=== PATIENT | female | born 1940 | race Caucasian/White ===

== ENCOUNTER 2021-11-19 16:46 | Inpatient (IN) | payer MEDICARE, SELFPAY ==
--- NOTE | ~2021-11-19 | XR_ITS ---
EXAM: XR pelvis 1-2V, XR femur LT min 2V DATE: 11/19/2021 17:36 HISTORY: FALL, SHORTENED, ROTATION . COMPARISON: None available. FINDINGS: Decreased mineralization. Comminuted somewhat overlapping left intertrochanteric fracture. Cortical step-off at the proximal aspect of the right superior pubic ramus and pubic bone junction. Suggestion of a fracture line in the right sacral ala. No lytic or blastic lesion. Bilateral hip arth ritis and degenerative lumbar change. No erosion or periosteal change. Soft tissues within normal engle its. IMPRESSION: Comminuted left intertrochanteric fracture. Possible right pelvic and sacral fractures, r ecommend CT of the pelvis for further evaluation. Reviewed, dictated and finalized at location K. IMPRESSION: Comminuted left intertrochanteric fracture. Possible right pelvic a nd sacral fractures, recommend CT of the pelvis for further evaluation.
--- NOTE | ~2021-11-19 | CT_ITS ---
CT OF PELVIS EXAMINATION: CT pelvis wo con DATE: 11/19/2021 18:32 INDICATION: Possible fracture on radiograph. TECHNIQUE: Computed tomography (CT) of the pelvis was performed without intravenous contrast. Automat ed exposure control and iterative reconstruction technique were employed. The dose-length product was 164.73 mGy-cm. COMPARISON: Pelvic x-ray, same date FINDINGS: Limitations: None Bones: Severe osteopenia. Comminuted left intertrochanteric fracture. No acute right hip or pelvic fr acture. Old left pubic and inferior pubic ramus fractures, healed in slight deformity. Soft Tissues:Mishra catheter, with the distended balloon in the urinary bladder. Bladder wall thickeni ng. Diverticulosis without diverticulitis. Atherosclerotic vascular calcifications. Fluid: Fluid within the left hip joint space. Fat fluid levels within fluid collections about the gre ater trochanter. IMPRESSION: Comminuted left intertrochanteric fracture. No other fracture in the pelvis or right hip. Findings in the prior radiograph were artifactual. Reviewed, dictated and finalized at location K.
--- NOTE | ~2021-11-19 | CT_ITS ---
EXAMINATION: CTA chest PE protocol DATE: 11/20/2021 10:30 INDICATION: Bilateral deep venous thrombosis of the lower extremities TECHNIQUE: Computed tomography angiography (CTA) of the chest was performed with 100 mL Omnipaque-350 intravenous contrast timed to evaluate the pulmonary arteries. Coronal maximum intensity projection 3D-reconstructions were created by the technologist. Automated exposure control and iterative reconst ruction technique were employed. Exam dose: 209.36 mGy-cm total exam DLP. COMPARISON: 11/19/2021 AP chest 11/20/2021 venous duplex examination of the lower extremities FINDINGS: There is diagnostic contrast enhancement of the pulmonary arteries. There is no volume nono cclusive pulmonary embolism involving segmental branches to the middle and right lower lobes. Cardiomegaly. No pericardial or pleural effusion. No hilar or mediastinal mass lesion or lymphadenopa thy. There is aortic ectasia and calcification. Mild emphysematous changes of the lungs. Minimal atelectasis in the lower lobes. Diffuse osteopenia. No suspicious osteolytic or osteoblastic lesions. IMPRESSION: Mild nonocclusive, pulmonary embolism at middle and right lower lobes Reviewed, dictated and finalized at Location A. Reviewed, dictated and finalized at location B. IMPRESSION: Mild nonocclusive, pulmonary embolism at middle and right lower lo bes
--- NOTE | ~2021-11-19 | US_ITS ---
EXAMINATION:US venous doppler LE BI INDICATION:Follow-up DVT. TECHNIQUE: Multiple grayscale, color flow and Doppler images of the right and left lower extremity de ep venous systems were obtained and reviewed. COMPARISON:11/20/2021 FINDINGS: The common femoral, superficial femoral veins demonstrate normal respiratory variation, aug mentation and compressibility. There are small persistent DVTs in the popliteal veins bilaterally, un changed. Color flow is also seen within the posterior tibial, peroneal, greater saphenous and profund a veins. IMPRESSION: 1: Persistent bilateral deep venous thrombosis in the popliteal veins. Reviewed, dictated and finalized at location A.
--- NOTE | ~2021-11-19 | CT_ITS ---
EXAMINATION: CT femur RT wo con, CT femur LT wo con DATE: 11/20/2021 07:52 INDICATION: Lytic lesions of the femoral diaphyses on prior radiographs. TECHNIQUE: 1. High resolution computed tomography (CT) of the right femur was performed without intravenous cont rast. Additional sagittal and coronal reconstructions were performed. Automated exposure control and iterative reconstruction technique were employed. The dose-length product was 395.21 mGy-cm. 2. High resolution computed tomography (CT) of the left femur was performed without intravenous contr ast. Additional sagittal and coronal reconstructions were performed. Automated exposure control and i terative reconstruction technique were employed. The dose-length product was 395.21 mGy-cm. COMPARISON: Radiographs dated 11/19/2021 FINDINGS: Again seen is a comminuted intratrochanteric fracture of the proximal left femur with varus angulatio n and minimal medial distraction of the lesser trochanteric fragment. Associated labral hematoma with layering fat blood levels are seen lateral to the greater trochanter measuring 6.5 x 6.5 x 3.1 cm an d cephalad to the greater trochanter measuring 2.8 x 5.0 x 3.1 cm. No other acute fractures identifie d in either the left or right femur or visualized inferior pelvis. Old healed fracture deformities at the left superior and inferior pubic rami and intervening pubic body. Severe diffuse osteopenia most likely osteoporosis which appears to account for the appearance of lytic lesion with endosteal scall oping in the bilateral femoral diaphyses. Within the region of concern there is an absence of interna l trabecula and the marrow signal demonstrates diffuse decreased attenuation corresponding to fatty m arrow with Hounsfield units of -60 to -80. Small amount of intramedullary hemorrhage adjacent to the fracture and the proximal left femur. There is also some scattered spotty severe subcortical osteopen ia also with subtle marrow fat attenuation in the more distal femurs and proximal tibia on both the l eft and right. No lesions with appearance more suspicious for either metastatic disease or multiple m yeloma. Mild polyarticular osteoarthritis at the bilateral knees and hips. Small left hip hemarthrosi s. No joint effusion at the right hip or either knee. Likely age-related symmetric diffuse muscular a trophy in the visualized pelvis and bilateral thighs. Mishra catheter and some gas within the bladder. Marked diverticulosis along the visualized sigmoid colon without adjacent inflammatory change to sug gest diverticular colitis. No evident pelvic or inguinal lymphadenopathy. IMPRESSION: 1. Varus angulation of a comminuted intratrochanteric fracture of the proximal left femur. 2. Relatively symmetric marked diffuse osteopenia likely frankly osteoporotic which accounts for the appearance of lytic bone lesions in the diaphysis where there is diffuse fatty marrow attenuation wit h no evident associated higher attenuation fluid or soft tissue density to suggest metastatic disease or multiple myeloma. 3. Old healed fracture deformity at the left pubic body and superior and inferior pubic rami. Reviewed, dictated and finalized at location A. IMPRESSION: 1. Varus angulation of a comminuted intratrochanteric fracture of the proximal left femur. 2. Relatively symmetric marked diffuse osteopenia likely frankly osteoporotic w hich accounts for the appearance of lytic bone lesions in the diaphysis where t here is diffuse fatty marrow attenuation with no evident associated higher atte nuation fluid or soft tissue density to suggest metastatic disease or multiple myeloma. 3. Old healed fracture deformity at the left pubic body and superior and inferi or pubic rami. IMPRESSION: 1. Varus angulatio
--- NOTE | ~2021-11-19 | XR_ITS ---
EXAMINATION: XR chest 1V Exam Date/Time: 11/19/2021 17:25 CDT HISTORY: fall Comparison: None available. RESULT: Lines, tubes, and devices: None. Lungs and pleura: Minimal biapical pleural scarring. Right upper lung granuloma. Mild senescent shah ge. Cardiomediastinal silhouette: Unremarkable cardiomediastinal silhouette. Other: No acute osseous or upper abdominal finding. IMPRESSION: No acute cardiopulmonary process. Reviewed, dictated and finalized at location K.
--- NOTE | ~2021-11-19 | XR_ITS ---
EXAMINATION: XR surgery orthopedic DATE: 11/20/2021 18:46 INDICATION: Intertrochanteric fracture of proximal left femur. TECHNIQUE: 5 intraoperative fluoroscopic views of left hip were obtained. I was not present. Fluorosc opy exposure time was 251 seconds. COMPARISON: Left femur radiographs 11/19/2021 FINDINGS: There is a comminuted intertrochanteric fracture of proximal left femur status post open re duction internal fixation with antegrade intramedullary kevin and 2 femoral head/neck screws. The main distal fracture fragment demonstrates near-anatomic alignment. There are old healed fractures of left parasymphyseal pubis and inferior pubic ramus. There is mild left hip osteoarthritis. IMPRESSION: 1. Comminuted intertrochanteric fracture of proximal left femur status post open reduction internal f ixation. 2. Mild left hip osteoarthritis. Reviewed, dictated and finalized at location A. IMPRESSION: 1. Comminuted intertrochanteric fracture of proximal left femur status post ope n reduction internal fixation. 2. Mild left hip osteoarthritis.
--- NOTE | ~2021-11-19 | US_ITS ---
EXAMINATION: US venous doppler [facility] DATE: 11/20/2021 07:58 INDICATION: Doppler evaluation prior to internal fixation for a left femoral fracture. TECHNIQUE: Grayscale ultrasound images without and with compression and Doppler ultrasound images of the bilateral lower extremity veins were obtained. COMPARISON: None. FINDINGS: Nonocclusive noncompressible thrombus in the right popliteal vein. The visualized portions of right c ommon femoral vein, profunda (deep) femoral vein, femoral vein, posterior tibial veins, peroneal vein s, gastrocnemius vein and greater saphenous vein outflow are patent. Additional nonocclusive noncompressible thrombus in the left popliteal vein. The visualized portions of left common femoral vein, profunda femoral vein, femoral vein, posterior tibial veins, peroneal ve ins, gastrocnemius vein and greater saphenous vein outflow are patent. IMPRESSION: 1. Relatively symmetric nonocclusive deep venous necrosis in the bilateral popliteal veins. Findings were discussed with Petty De La Vega, the nurse caring for the patient, at 8:25 AM. Reviewed, dictated and finalized at location A. IMPRESSION: 1. Relatively symmetric nonocclusive deep venous necrosis in the bilateral pop liteal veins. Findings were discussed with Petty De La Vega, the nurse caring fo r the patient, at 8:25 AM.
[2021-11-19 16:46] VITALS: BP 146/80; PULSE 88; RESP 18; TEMP 36.6; O2SAT 98
--- NOTE | 2021-11-19 16:57 | ECG_ITS ---
Measurements Intervals Webb Rate: 83 P: 56 GA: 154 QRS: -20 QRSD: 100 T: 60 QT: 392 QTc: 461 Interpretive Statements SINUS RHYTHM BORDERLINE ST-T WAVE ABNORMALITY- DIFFUSE LEADS BASELINE ARTIFACT- I, II, III, AVR, AVL, AVF, V1-V6 BORDERLINE ECG Electronically Signed On 11-19-2021 22:43:34 CDT by Guille Vaughan D.O.
--- NOTE | 2021-11-19 16:59 | ED.LOWEXIN ---
HPI - Extremity Injury (Lower) General Chief Complaint: Extremity Injury, Lower <Elisa Bush PA-C - Last Filed: 11/20/21 01:16> Stated Complaint: Hip Injury <Elisa Bush PA-C - Last Filed: 11/20/21 01:16> Time Seen by Provider: 11/19/21 16:53 <Elisa Bush PA-C - Last Filed: 11/20/21 01:16> History of Present Illness HPI Narrative: Patient is a 81-year-old female with a history of PE, DVT, HTN, not currently on any medications, here for evaluation of left leg pain after a fall earlier today. Patient states that she was using her walker when she lost balance and she landed on her left side on the carpeted floor. No head injury or LOC. States that she was in her usual state of health prior to the fall, denied any chest pain, shortness of breath, lightheadedness or weakness. She stayed on the ground for about 10 minutes, her called an ambulance and she came to the ED. She was given fentanyl and Zofran in route with mild relief of her pain. <SACHIN Chaudhry Last Filed: 11/20/21 01:16> Related Data Home Medications: Home Medications Medication Instructions Recorded Confirmed acetaminophen 325 mg capsule 325 mg Q4-6H PRN Pain 11/19/21 11/19/21 (Tylenol) <SACHIN Chaudhry Last Filed: 11/20/21 01:16> Allergies/Adverse Reactions: Allergies Allergy/AdvReac Type Severity Reaction Status Date / Time Penicillins Allergy Mild Unknown Verified 11/19/21 18:58 <Elisa Bush PA-C - Last Filed: 11/20/21 01:16> Review of Systems Review of Systems: Gen.: Denies fevers or chills Eyes: Denies eye pain or visual change ENT: Denies congestion Respiratory: Denies shortness of breath or cough CV: Denies chest pain or palpitations GI: Denies abdominal pain nausea, emesis or diarrhea denies burning, urgency, frequency or hematuria Musculoskeletal: Reports left leg pain. Neuro: Denies numbness, tingling, weakness or focal weakness Skin: Denies rash Except as documented, all other systems reviewed and negative <Elisa Bush PA-C - Last Filed: 11/20/21 01:16> [facility] Past Medical History Medical History: Medical History DVT (deep venous thrombosis) Hypertension Pulmonary embolism <Elisa Bush PA-C - Last Filed: 11/20/21 01:16> Surgical History Surgical History: Surgical History H/O: hysterectomy <SACHIN Chaudhry Last Filed: 11/20/21 01:16> Family History Family History: Family History Other Unknown family medical history <SACHIN Chaudhry Last Filed: 11/20/21 01:16> Social History Social History: Social History Social History: patient lives at home with her theodora she had 1 daughter. She wishes to be a DNR at this time. Theodora will be her surrogate. Smoking status: Former smoker Additional smoking assessment comments: Patient has no idea when she started or stopped smoking Alcohol intake: current Drinks per week: 6 Alcohol use details: patient stated she has wine a couple of times a week Substance use: never Substance use type: does not use Living arrangements: with family Occupation/Education: retired Gender identity (if verbalized by the patient): Female Sexual Orientation (if Verbalized by the Patient): Straight or Heterosexual Spiritual care concerns: No Agree to blood products: Yes <SACHIN Chaudhry Last Filed: 11/20/21 01:16> Exam Narrative: APPEARANCE: Uncomfortable appearing. Head: Normocephalic and atraumatic. EYES: PERRLA/EOMI, conjunctivae clear NOSE: No nasal drainage EARS: External ear normal in appearance THROAT: Oropharynx is clear. Mucous membranes ar
[2021-11-19 17:13] LABS: Basophils Percent Auto 0.7 % (0.2-1.2); Eosinophils Absolute Auto 0.2 K/mm3 (0-0.3); Eosinophils Percent Auto 3.9 % (0-4.4); Hematocrit 32.9 % (37.0-47.0); Hemoglobin 10.9 g/dL (12.0-15.0); Immature Granulocyte Absolute 0.02 K/mm3 (0.00-0.031); Immature Granulocyte Percent A 0.4 % (0-0.5); Lymphocytes Absolute Auto 1.06 K/mm3 (0.9-3.2); Lymphocytes Percent Auto 18.8 % (18.3-44.2); Mean Corpuscular HGB Conc 33.1 g/dl (32-36); Mean Corpuscular Hemoglobin 34.8 pg (26-34); Mean Corpuscular Volume 105.1 fl (80-100); Mean Platelet Volume 9.3 fl (7.4-10.4); Monocytes Absolute Auto 0.8 K/mm3 (0.1-0.6); Monocytes Percent Auto 13.8 % (2.6-8.5); Neutrophils Absolute Auto 3.5 K/mm3 (1.3-6.7); Neutrophils Percent Auto 62.4 % (45.5-73.1); Platelet Count Result 225 k/mm3 (150-375); Red Blood Count 3.13 M/mm3 (4.2-5.4); Red Cell Distribution Width 14.4 % (11.5-14.5); White Blood Count 5.7 K/mm3 (4.5-10.0)
[2021-11-19 17:25] LABS: Alanine Aminotransferase 41 U/L (6-35); Albumin Level 3.5 g/dL (3.5-5.1); Alkaline Phosphatase 217 U/L (38-126); Anion Gap 13 mmol/L (8-16); Aspartate Amino Transferase 92 U/L (14-36); Bilirubin,Total 0.4 mg/dL (0.2-1.3); Blood Urea Nitrogen 16 mg/dL (7-17); Calcium 9.1 mg/dL (8.4-10.2); Carbon Dioxide 23 mmol/L (22-30); Chloride 90 mmol/L (98-107); Estimated CRCL calculation 29 ml/min; Estimated Glomerular Filt Rate 43; Glucose 97 mg/dL (65-110); Potassium 3.5 mmol/L (3.4-5.0); Sodium 126 mmol/L (137-145)
[2021-11-19 17:44] LABS: Magnesium 1.3 mg/dL (1.6-2.3); Phosphorus 2.9 mg/dL (2.5-4.5)
[2021-11-19 17:45] VITALS: PULSE 83; RESP 11; O2SAT 100
[2021-11-19 17:53] LABS: Troponin I < 0.012 ng/mL (0.000-0.034)
[2021-11-19] MEDS: fentaNYL CITRATE INJ (*CRX) 100 MCG/2 ML VIAL 25 MCG IV PUSH (18:18)
[2021-11-19 18:57] VITALS: BP 121/77; PULSE 92; RESP 8; O2SAT 98
[2021-11-19 19:12] LABS: SARS-CoV-2 RNA PCR Negative
--- NOTE | 2021-11-19 19:14 | PC.NURSE ---
Assuming care of pt.
[2021-11-19 19:15] VITALS: BP 119/77; PULSE 92; RESP 14; O2SAT 98
[2021-11-19] MEDS: MAGNESIUM SULF 2 GM/WATER 50ML 2 GM/50 ML BAG IVPB (19:46)
[2021-11-19] MEDS: ACETAMINOPHEN 325 MG TABLET 650 MG PO (20:08)
--- NOTE | 2021-11-19 21:27 | ADMGEN ---
This patient, Stephanie Beltrán, was admitted to Medical Room 254-01. Patient/family oriented to hospital policies and general routines including ID bracelet, bed and alarms, visiting hours, pain management, procedures, bathroom and other care routines, personal items, smoking policy, room service/diet, and visiting hours. Information on how to activate the Rapid Response Team has been discussed. Patient/Family are encouraged to report perceived risks to care and to ask questions if they do not understand what they are told or what they should do.
--- NOTE | 2021-11-19 21:39 | PC.NURSE ---
WHEN GOING OVER PT MEDS SHE STATED SHE DOES NOT TAKE ANY HOME MEDICATIONS. ONLY A TYLENOL HERE AND THERE FOR BACK PAIN.
[2021-11-19 21:59] VITALS: BP 131/74; PULSE 103; RESP 20; TEMP 36.2; O2SAT 98
[2021-11-19 22:00] VITALS: BMI 20.8
--- NOTE | 2021-11-19 22:00 | PM.IMHP ---
H&P: HPI History of Present Illness Date/Time: 11/19/21 21:27 Chief Complaint: fall Narrative: Patient is an 81-year-old female with a past medical history of pulmonary embolism, DVT, hypertension who presented the ED the after a fall. Patient was up and walking with her walker she lost her balance she stated that she landed on her left side on the carpet. Her was there with her and Called for an ambulance. Patient states that she has had no issues over the last couple days including chest pain, shortness of breath, nausea, vomiting, diarrhea, constipation, visual changes, sweats, fevers, chills, syncope, dizziness, falls. Patient is a very poor historian. Looking at the external medication history patient has been prescribed Eliquis however when you ask her about it she has no clue which are saying to her. She does know where she is the time and date and situation. X-ray of the femur did show a fracture. CT of the abdomen and pelvis did not show any pelvic fractures. Orthopedics has been consulted. Echo, venous Dopplers are ordered EKG is already performed and completed. Did not consult Cardiology for risk assessment however labs are stable sodium is little low. Patient is being admitted to the hospitalist service as inpatient for hip repair Review of Systems Review of Systems: All systems reviewed & are unremarkable except as noted in HPI and below [facility] Past Medical History Medical History DVT (deep venous thrombosis) Hypertension Pulmonary embolism Family History Family History (Updated 11/19/21 @ 21:31 by Yaritza Harris RN) Other Unknown family medical history Social History Social History (Updated 11/19/21 @ 23:07 by BOBBI Kearns) Social History: patient lives at home with her debbie she had 1 daughter. She wishes to be a DNR at this time. Pat will be her surrogate. Smoking status: Former smoker Additional smoking assessment comments: Patient has no idea when she started or stopped smoking Alcohol intake: current Drinks per week: 6 Alcohol use details: patient stated she has wine a couple of times a week Substance use: never Substance use type: does not use Living arrangements: with family Occupation/Education: retired Gender identity (if verbalized by the patient): Female Sexual Orientation (if Verbalized by the Patient): Straight or Heterosexual Spiritual care concerns: No Agree to blood products: Yes Meds Home Medications and Allergies Home Medications Medication Instructions Recorded Confirmed Type acetaminophen 325 mg capsule 325 mg Q4-6H PRN Pain 11/19/21 11/19/21 History (Tylenol) Allergies Allergy/AdvReac Type Severity Reaction Status Date / Time Penicillins Allergy Mild Unknown Verified 11/19/21 18:58 Vital Signs Vital Signs - 24 hr 11/19/21 16:46 11/19/21 17:45 11/19/21 18:57 Temperature 98 F Pulse Rate 88 83 92 Respiratory Rate 18 11 L 8 L Blood Pressure 146/80 H 121/77 Pulse Oximetry 98 100 98 Oxygen Delivery Room Air 11/19/21 19:15 Temperature Pulse Rate 92 Respiratory Rate 14 Blood Pressure 119/77 Pulse Oximetry 98 Oxygen Delivery Exam Const: General: cooperative, healthy appearing, no acute distress, well developed, alert, awake, tired appearing and uncomfortable Nutritional Appearance: well nourished Orientation/consciousness: oriented to person, oriented to place, oriented to time and patient oriented x3 Limitations: physical limitations (left femur fracture) HENMT: Head: normal to inspection Ears: hearing grossly normal bilaterally General nose exam: Normal external nose present Mouth: Yes lip normal, Yes tongue normal and Yes dry mucous membranes Teeth and gingiva: abnormal tooth and associated gingiva and poor dentition Eyes: General: appearance normal, both eyes and all related structures Neck: Neck: no
[2021-11-19] MEDS: MORPHINE SULFATE (*CRX) 2 MG/ML INJ 1 MG IV PUSH (22:30)
[2021-11-19] MEDS: LACTATED RINGERS 1,000 ML 50 ML IV CONT (22:41)
[2021-11-19] MEDS: SODIUM CHLORIDE 0.9% IV 1,000 ML 100 ML IV CONT (23:25)
[2021-11-19] MEDS: HYDROcodone/acetaminophen (*CRX) 5-325 MG TABLET 1 TAB PO (23:30)
[2021-11-20] VITALS (18 sets, daily range): BP systolic 104–148; BP diastolic 70–92; PULSE 94–119; RESP 12–21; TEMP 36.1–37; O2SAT 97–100
--- NOTE | 2021-11-20 | ECHO_ITS ---
Patient Info Name: Stephanie Beltrán Age: 81 years : 1940 Gender: Female Ht: 64 in Wt: 121 lbs BSA: 1.57 m2 HR: 118 bpm BP: 148 / 92 mmHg Exam Date: 11/20/2021 9:02 AM Exam Location: [facility] Patient Status: Inpatient Admit Date: 11/19/2021 Staff Ordering Physician: Juan Diego Caballero Line Maintainer Section: Maciej Amezquita RDCS, RT Attending Provider: Denae Caceres PA-C Referring Physician: Federico EDMONDS; Exam Type: CA echo doppler color flow Study Info Indications Z01.818 - Encounter for other preprocedural examination Complete two-dimensional, color flow and Doppler transthoracic echocardiogram is performed. Summary 1. Complete two-dimensional, color flow and Doppler transthoracic echocardiogram is performed. 2. Left ventricular systolic function is probably normal, estimated at 50-55%. Cannot assess wall motion abnormalities due to poor endocardial definition. 3. There is mildly increased left ventricular wall thickness. 4. Left ventricular chamber dimension is normal. 5. There is moderate aortic valve sclerosis. 6. There is mild mitral valve regurgitation. 7. There is mild tricuspid valve regurgitation. 8. No pulmonary hypertension, estimated pulmonary arterial systolic pressure is 35 mmHg. 9. There is mild pulmonic regurgitation. Left Ventricle Left ventricular chamber dimension is normal. Left ventricular systolic function is probably normal, estimated at 50-55%. Cannot assess wall motion abnormalities due to poor endocardial definition. There is mildly increased left ventricular wall thickness. Left ventricular septal wall motion is normal. The left ventricular diastolic function is indeterminate. Right Ventricle Right ventricular chamber dimension is normal. Right ventricular systolic function is normal. Left Atria Left atrial chamber dimension is normal. Right Atria Right atrial chamber dimension is normal. Atrial Septum Interatrial septum not well visualized by color flow imaging. Aortic Valve The aortic valve is trileaflet. There is moderate aortic valve sclerosis. There is no aortic valve stenosis. There is no aortic valve regurgitation. Pulmonic Valve The pulmonic valve is normal. There is no pulmonic valve stenosis. There is mild pulmonic regurgitation. Mitral Valve The mitral valve has normal leaflets. There is no mitral valve stenosis. There is mild mitral valve regurgitation. Tricuspid Valve The tricuspid valve leaflets are normal. There is no significant tricuspid valve stenosis. There is mild tricuspid valve regurgitation. No pulmonary hypertension, estimated pulmonary arterial systolic pressure is 35 mmHg. Pericardium/Pleural The pericardium appears normal. There is no pericardial effusion. Inferior Vena Cava Normal inferior vena cava with >50% collapse upon inspiration consistent with Empty right atrial pressure, 5 mmHg. Aorta The aortic root size at the sinus of Valsalva is normal. The prox ascending aorta size is normal. Left Ventricular Outflow Tract Name Value Normal LVOT 2D LVOT Diameter 1.9 cm LVOT Doppler LVOT Peak
--- NOTE | 2021-11-20 06:45 | PM.CNOR ---
Assessment and Plan Assessment and plan (1) Closed intertrochanteric fracture of femur: Code(s): S72.143A - Displaced intertrochanteric fracture of unspecified femur, initial encounter for closed fracture Status: Acute Plan this patient is an 82-year-old female fell yesterday sustaining a comminuted intertrochanteric left femur fracture with extension well below the lesser trochanter. She has a history DVT and pulmonary embolism. Her x-rays show severe osteoporosis. On review of the x-rays of the left femur there is the suggestion that there is a lytic lesion in the mid shaft of the left femur that is expansile. It is not possible to get a good comparison with the right femur on the AP pelvis because of the rotation I am going to order a CT scan both femurs to make sure that the unusual and ostial expansion in the mid shaft of the left femur is symmetric with the right. If not we have to worry about a lytic bone lesion such as a metastasis. An echocardiogram has been ordered to evaluate her heart and because of her lower extremity edema and history of DVTs and PE in the past and the fact that she she is not on any anticoagulation currently, venous duplex ultrasounds of both lower extremities are ordered. Patient was ambulatory with a walker prior to her fall. She lives at home with her she states. On exam she could not tell me when she had the blood clots or when she stops the Eliquis. She can only say it was a while ago and could not be more specific. I asked her what year was and she could not answer. The nurse tells me that last night she answered questions very well. She seems alert and communicates very normally. She does appear elderly and frail. She denies any other problems except for pain in the left hip which is shortened and externally rotated. I have carefully slid a pillow under her calves and knees so her heals will be off the bed. She has SCDs in place. She does have a palpable posterior tibial artery pulse and is able to wiggle her toes. I have discussed with her that we will need to repair this fracture if she is going to be able to walk and she wants to do that course. We will try and have the workup completed and proceed with surgery by this afternoon. I am going to order repeat labs. She has renal insufficiency and she was admitted with significant anemia which may be much worse today. History of Present Illness HPI Consult date: 11/20/21 Chief complaint: femur fracture PMFSH Past Medical History Medical History DVT (deep venous thrombosis) Hypertension Pulmonary embolism Family History Family History (Updated 11/19/21 @ 21:31 by Yaritza Harris RN) Other Unknown family medical history Social History Social History (Updated 11/19/21 @ 23:07 by BOBBI Kearns) Social History: patient lives at home with her debbie she had 1 daughter. She wishes to be a DNR at this time. Debbie will be her surrogate. Smoking status: Former smoker Additional smoking assessment comments: Patient has no idea when she started or stopped smoking Alcohol intake: current Drinks per week: 6 Alcohol use details: patient stated she has wine a couple of times a week Substance use: never Substance use type: does not use Living arrangements: with family Occupation/Education: retired Gender identity (if verbalized by the patient): Female Sexual Orientation (if Verbalized by the Patient): Straight or Heterosexual Spiritual care concerns: No Agree to blood products: Yes Meds Home Medications and Allergies Home Medications Medication Instructions Recorded Confirmed Type acetaminophen 325 mg capsule 325 mg Q4-6H PRN Pain 11/19/21 11/19/21 History (Tylenol) Allergies Allergy/AdvReac Type Severity Reaction Status Date / Time Penicillins Allergy Mild Unknown Verified 11/19/21 18:58
--- NOTE | 2021-11-20 07:32 | PM.IMPN ---
Progress Note: A&P Assessment and Plan (1) Closed fracture of left femur: Code(s): S72.92XA - Unspecified fracture of left femur, initial encounter for closed fracture <Denae Caceres PA-C - Last Filed: 11/20/21 15:01> Status: Acute <Denae Caceres PA-C - Last Filed: 11/20/21 15:01> Assessment and Plan: femur x-ray shows the comminuted intertrochanteric left femur fracture with extension well below the lesser trochanter. Orthopedics has been consulted in they do have some concern of a lytic lesion in the midshaft of the left femur, and will be ordering CT scan of both femurs to evaluate further. Patient is tachycardic and tachypneic this morning. Plan is for surgery at 3:30 today. [place] on board for pain control along with Tylenol and morphine orthopedics to manage postop care EKG shows sinus rhythm telemetry overnight will use SCDs for now for DVT prophylactics <Denae Caceres PA-C - Last Filed: 11/20/21 15:01> (2) Pulmonary emboli: Code(s): I26.99 - Other pulmonary embolism without acute cor pulmonale <Denae Caceres PA-C - Last Filed: 11/20/21 15:01> Status: Acute <Denae Caceres PA-C - Last Filed: 11/20/21 15:01> Assessment and Plan: CTA 11/20 showed mild nonocclusive, pulmonary embolism middle and right lower lobes. Cardiomegaly, no pericardial or pleural effusion. -reported findings to Dr. Callejas, ortho surgery at 11:26 a.m for additional surgical planning. - Awaiting echo read. - Patient with history of DVTs and pulmonary emboli, was on long-term Eliquis, however patient did discontinue it at some point ( patient is a poor historian -patient will likely initiate Eliquis postoperatively within 8 hours per Ortho. <Denae Caceres PA-C - Last Filed: 11/20/21 15:01> (3) DVT (deep venous thrombosis): Code(s): I82.409 - Acute embolism and thrombosis of unspecified deep veins of unspecified lower extremity <Denae Caceres PA-C - Last Filed: 11/20/21 15:01> Status: Acute <Denae Caceres PA-C - Last Filed: 11/20/21 15:01> Assessment and Plan: Venous duplex showed relatively symmetric nonocclusive deep venous necrosis in the bilateral popliteal veins. -have discussed with Orthopedics, further evaluation pursued as above. -patient will likely initiate Eliquis postoperatively within 8 hours per Ortho. <Denae Caceres PA-C - Last Filed: 11/20/21 15:01> (4) Transaminitis: Code(s): R74.01 - Elevation of levels of liver transaminase levels <Denae Caceres PA-C - Last Filed: 11/20/21 15:01> Status: Acute <Denae Caceres PA-C - Last Filed: 11/20/21 15:01> Assessment and Plan: liver enzymes elevated 92/141 hep panel pending Will check a.m. labs. <Denae Caceres PA-C - Last Filed: 11/20/21 15:01> (5) Hypomagnesemia: Code(s): E83.42 - Hypomagnesemia <Denae Caceres PA-C - Last Filed: 11/20/21 15:01> Status: Acute <Denae Caceres PA-C - Last Filed: 11/20/21 15:01> Assessment and Plan: magnesium 1.3 replaced with 4 g IV magnesium trend labs replace as indicated <Denae Caceres PA-C - Last Filed: 11/20/21 15:01> (6) Hyponatremia: Code(s): E87.1 - Hypo-osmolality and hyponatremia <Denae Caceres SACHIN - Last Filed: 11/20/21 15:01> Status: Acute <Denae Caceres SACHIN Ramirez Last Filed: 11/20/21 15:01> Assessment and Plan: sodium is at 128 today, up from 126. sodium chloride continued at 100 an hour, will recheck at 3PM. trend labs adjust therapy as indicated <Denae Childsosvaldo SACHIN - Last Filed: 11/20/21 15:01> (7) Hypertension: Code(s): I10 - Essential (primary) hypertension <Denae Caceres PA-C - Last Filed: 11/20/21 15:01> Status: Acute <Denae Caceres PA-C - Last Filed: 11/20/21 15:01> Assessment and Plan:
[2021-11-20 08:19] LABS: Hematocrit 29.7 % (37.0-47.0); Hemoglobin 10.2 g/dL (12.0-15.0); Mean Corpuscular HGB Conc 34.3 g/dl (32-36); Mean Corpuscular Hemoglobin 34.9 pg (26-34); Mean Corpuscular Volume 101.7 fl (80-100); Mean Platelet Volume 9.1 fl (7.4-10.4); Platelet Count Result 281 k/mm3 (150-375); Red Blood Count 2.92 M/mm3 (4.2-5.4); Red Cell Distribution Width 14.2 % (11.5-14.5); White Blood Count 8.3 K/mm3 (4.5-10.0)
[2021-11-20 08:32] LABS: Alanine Aminotransferase 38 U/L (6-35); Albumin Level 3.1 g/dL (3.5-5.1); Alkaline Phosphatase 205 U/L (38-126); Anion Gap 8 mmol/L (8-16); Aspartate Amino Transferase 77 U/L (14-36); Bilirubin,Total 0.7 mg/dL (0.2-1.3); Blood Urea Nitrogen 14 mg/dL (7-17); Calcium 8.5 mg/dL (8.4-10.2); Carbon Dioxide 25 mmol/L (22-30); Chloride 95 mmol/L (98-107); Estimated CRCL calculation 34 ml/min; Estimated Glomerular Filt Rate 53; Glucose 147 mg/dL (65-110); Sodium 128 mmol/L (137-145)
[2021-11-20 08:34] LABS: INR 0.9
[2021-11-20 08:57] LABS: Vitamin D 25 Hydroxy 14.4 ng/mL
[2021-11-20] MEDS: oxyCODONE HCL (*CRX) 2.5 MG TAB IR PO ×3 (09:20→20:45)
[2021-11-20] MEDS: DOCUSATE SODIUM 100 MG CAPSULE PO (09:20)
[2021-11-20 12:21] LABS: Magnesium 1.8 mg/dL (1.6-2.3)
[2021-11-20] MEDS: SODIUM CHLORIDE 0.9% IV 1,000 ML 100 ML IV CONT (12:26)
--- NOTE | 2021-11-20 14:05 | PM.CNGS ---
Assessment and Plan Assessment and plan (1) DVT (deep venous thrombosis): Code(s): I82.409 - Acute embolism and thrombosis of unspecified deep veins of unspecified lower extremity Status: Acute Assessment and Plan: Patient with bilateral lower extremity DVT and PE. She has a left femur fracture and is scheduled for surgery today. Anticoagulation is contraindicated and Orthopedics has requested placement of an IVC filter. Description of the procedure, risks, benefits, expected outcomes, and expected recovery were discussed with the patient in detail. All questions were answered. Patient and her agree to proceed. Discussed with the Hospitalist who has spoke with the about the procedure as well. Will plan to proceed today with IVC filter placement. (2) Pulmonary emboli: Code(s): I26.99 - Other pulmonary embolism without acute cor pulmonale Status: Acute (3) Closed intertrochanteric fracture of femur: Code(s): S72.143A - Displaced intertrochanteric fracture of unspecified femur, initial encounter for closed fracture Status: Acute Assessment and Plan: Scheduled for surgery today. (4) Hypertension: Code(s): I10 - Essential (primary) hypertension Status: Acute Plan I have discussed the patient's case and plan of care with Dr. Antunez. History of Present Illness Consult details Consult date: 11/20/21 Reason for consult: other (IVC filter placement) Requesting physician: Bharath Callejas MD Narrative: Patient is an 81-year-old female with a past medical history of pulmonary embolism, DVT, hypertension who presented the ED yesterday after a fall.? Patient was up and walking with her walker she lost her balance she stated that she landed on her left side on the carpet.? Her was there with her and called for an ambulance.? She was apparently on Eliquis in the past but reportedly stopped taking this a few weeks ago because she didn't like it. She was admitted for further evaluation and Orthopedics was consulted. She was found to have a left femur fracture and is scheduled to go to surgery today. Bilateral lower extremity venous dopplers showed nonocclusive bilateral popliteal DVTs. CTA chest showed mild nonocclusive PE at hte middle and right lower lobes. The Orthopedic surgeon contacted our service and is requesting IVC filter placement pre-operatively. Patient is now seen on the medical floor for surgical evaluation of such. Review of Systems Review of Systems: All systems reviewed & are unremarkable except as noted in HPI and below PMFSH Past Medical History Medical History DVT (deep venous thrombosis) Hypertension Pulmonary embolism Surgical History Surgical History H/O: hysterectomy Family History Family History Other Unknown family medical history Social History Social History Social History: patient lives at home with her debbie she had 1 daughter. She wishes to be a DNR at this time. Pat will be her surrogate. Smoking status: Former smoker Additional smoking assessment comments: Patient has no idea when she started or stopped smoking Alcohol intake: current Drinks per week: 6 Alcohol use details: patient stated she has wine a couple of times a week Substance use: never Substance use type: does not use Living arrangements: with family Occupation/Education: retired Gender identity (if verbalized by the patient): Female Sexual Orientation (if Verbalized by the Patient): Straight or Heterosexual Spiritual care concerns: No Agree to blood products: Yes Meds Home Medications and Allergies Home Medications Medication Instructions Recorded Confirmed Type acetaminophen 325 mg capsule
--- NOTE | 2021-11-20 14:32 | WPDHPUPDATE1 ---
History and Physical Update Update Date/Time: 11/20/21 14:32 History and Physical has been reviewed, including an updated exam of the patient. There are NO changes in the patient's condition. Risks, benefits, and alternatives have been discussed and questions answered. Patient agrees to proceed with procedure.
--- NOTE | 2021-11-20 15:20 | P.OP_ITS ---
Procedure Note - Detailed Date of Procedure 11/20/21 Pre-op Diagnosis Bilateral lower extremity DVT, PE, femur fracture Post-op Diagnosis Same Procedure Performed placement of Bertha retrievable IVC filter under ultrasound and fluoroscopic guidance Surgeon Iraida Antunez MD Anesthesia Local Indications 81-year-old female with femur fracture needing urgent repair presenting with recurrent bilateral extremity DVT and PE Findings right femoral vein access under fluoroscopic guidance Description of Procedure The patient was taken to the cath suite and placed in the supine position. The patient was then prepped and draped in normal sterile fashion. A time-out was then to verify the patient's identity as well as the procedure being performed. I began by using the ultrasound device to identify the right femoral vein. Once the vein was identified, the area over the vein was localized. I then used the ultrasound to gain access with an 18 gauge needle into the right femoral vein. I then threaded the guidewire under sterile Seldinger technique into the right femoral vein and subsequently into the vena cava. This was done and confirmed via fluoroscopic guidance. Once the guidewire was in good position, the needle was removed. I then enlarged the incision around the guidewire and the right groin. Under fluoroscopic guidance and using sterile Seldinger technique I threaded the dilating sheath into position. Once the sheath was noted to be at the top of L3, I removed the guidewire and dilator. I then placed the plunger with the filter through the sheath to the level of L3. The retrievable filter was then deployed under fluoroscopic guidance. Once deployed, it was noted to be in good position. The sheath and plunger were then removed and pressure was held. The patient tolerated the procedure well. She will be transferred back to the floor in stable condition. Implants [place] vena cava filter Estimated Blood Loss 10 Complications No immediate complications Condition Stable Disposition Floor [facility] Billing Surgery - Charge Forward: Surgery Billing
--- NOTE | 2021-11-20 16:08 | WPDANESEPPF ---
Anes - Initial Pre Proc Eval Procedure: Operation Date: 11/20/21 14:15 Proposed Procedures p Insertion of Inferior Vena Cava Filter - Iraida Antunez MD Operation Date: 11/20/21 15:30 Proposed Procedures p Left Intertrochanteric Nail - Bharath Callejas MD Date/Time: 11/20/21 16:08 Surgeon: Denae Caceres PA-C Pre Op Diagnosis: femur fracture Patient Data Age: 81 Gender: F Height: 1.63 m Weight: 55 kg Last Vital Signs Temp 36.1 C L 11/20/21 05:00 Pulse 102 H 11/20/21 15:52 Resp 18 11/20/21 15:42 BP 140/73 11/20/21 15:52 Pulse Ox 98 11/20/21 15:52 O2 Del Method Room Air 11/20/21 15:52 Allergies Allergy/AdvReac Type Severity Reaction Status Date / Time Penicillins Allergy Mild Unknown Verified 11/19/21 18:58 Home Medications Medication Instructions Recorded Confirmed Type acetaminophen 325 mg capsule 325 mg Q4-6H PRN Pain 11/19/21 11/19/21 History (Tylenol) Laboratory Tests 11/19/21 11/19/21 11/19/21 17:07 17:07 17:07 WBC RBC Hgb Hct MCV MCH MCHC RDW Plt Count MPV Immature Gran % (Auto) Neut % (Auto) Lymph % (Auto) [place] % (Auto) Eos % (Auto) Baso % (Auto) Lymph # (Auto) [place] # (Auto) Eos # (Auto) Baso # (Auto) Abs Immat Gran (auto) Absolute Neuts (auto) Absolute Nucleated RBC Nucleated RBC % PT INR Sodium Potassium Chloride Carbon Dioxide Anion Gap BUN Creatinine Estim Creat Clear Calc Estimated GFR Glucose Calcium Phosphorus 2.9 mg/dL mg/dL (2.5-4.5) Magnesium 1.3 mg/dL L mg/dL (1.6-2.3) Total Bilirubin AST ALT Alkaline Phosphatase Troponin I < 0.012 ng/mL ng/mL (0.000-0.034) Total Protein Albumin Vitamin D 25-Hydroxy SARS-CoV-2 RNA (RT-PCR) Blood Type O Positive Antibody Screen Negative 11/19/21 11/19/21 11/19/21 17:08 17:08 17:55 WBC 5.7 K/mm3 K/mm3 (4.5-10.0) RBC 3.13 M/mm3 L M/mm3 (4.2-5.4) Hgb 10.9 g/dL L g/dL (12.0-15.0) Hct 32.9 % L % (37.0-47.0) MCV 105.1 fl H fl (80-100) MCH 34.8 pg H pg (26-34) MCHC 33.1 g/dl g/dl (32-36) RDW 14.4 % % (11.5-14.5) Plt Count 225 k/mm3 k/mm3 (150-375) MPV 9.3 fl fl (7.4-10.4) Immature Gran % (Auto) 0.4 % % (0-0.5) Neut % (Auto) 62.4 % % (45.5-73.1) Lymph % (Auto) 18.8 % % (18.3-44.2) [place] % (Auto) 13.8 % H % (2.6-8.5) Eos % (Auto) 3.9 % % (0-4.4) Baso % (Auto) 0.7 % % (0.2-1.2) Lymph # (Auto) 1.06 K/mm3 K/mm3 (0.9-3.2) [place] # (Auto) 0.8 K/mm3 H K/mm3 (0.1-0.6) Eos # (Auto) 0.2 K/mm3 K/mm3 (0-0.3) Baso # (Auto) 0.0 K/mm3 K/mm3 (0.0-0.1) Abs Immat Gran (auto) 0.02 K/mm3 K/mm3 (0.00-0.031) Absolute Neuts (auto) 3.5 K/mm3 K/mm3 (1.3-6.7) Absolute Nucleated RBC 0.0 K/mm3 K/mm3 (0.0-0.012) Nucleated RBC % 0.0 % % (0.0-0.2) PT INR Sodium 126 mmol/L L mmol/L (137-145) Potassium 3.5 mmol/L mmol/L (3.4-5.0) Chloride 90 mmol/L L mmol/L (98-107) Carbon Dioxide 23 mmol/L mmol/L (22-30) Anion Gap 13 mmol/L mmol/L (8-16) BUN 16 mg/dL mg/dL (7-17) Creatinine 1.20 mg/dL H mg/dL (0.7-1.0) Estim Creat Clear Calc 29 ml/min ml/min
--- NOTE | 2021-11-20 16:11 | WPDHPUPDATE1 ---
History and Physical Update Update Date/Time: 11/20/21 16:11 History and Physical has been reviewed, including an updated exam of the patient. CTA showed PEs. Vena Cava filter placed by DR Antunez. Echocard reportedly WNL. Risks, benefits, and alternatives have been discussed and questions answered. Patient agrees to proceed with procedure.
[2021-11-20] MEDS: SODIUM CHLORIDE 0.9% IV 500 ML 30 ML IV CONT ×2 (16:20→18:56)
--- NOTE | 2021-11-20 17:06 | SUR.PREOP ---
6007 - dr. barnes ordered to dc SCDs. Stated that he would talk with Dr. Callejas in regards to SCDs
[2021-11-20] MEDS: ceFAZolin 2 GM/D5W 50 ML 2 GM/50 ML BAG IVPB (17:08)
[2021-11-20] MEDS: ceFAZolin SODIUM 1 GM VIAL (17:51)
--- NOTE | 2021-11-20 18:49 | P.OP_ITS ---
Procedure Note - Detailed Date of Procedure 11/20/21 Pre-op Diagnosis Comminuted 4 part left intertrochanteric subtrochanteric femur fracture Post-op Diagnosis Same Procedure Performed Open reduction internal fixation of left proximal femur fracture with Arthrex ES trochanteric nail left 10 mm x 33 cm 125?. Surgeon Bharath Callejas MD Certified Registered Nurse Anesthetist [place] Description of Procedure Patient was brought to the operating room and general anesthesia was administered. The left hip and thigh was carefully scrubbed with chlorhexidine cloth. She received 2 g of Ancef in weight based vancomycin preoperatively. We did not give tranexamic acid because of the thrombi in both popliteal veins and lungs. Vena cava filter was placed preoperatively. The left foot was placed in the traction boot the right hip flexed abducted out of the way. Reduction seem satisfactory on lateral view but on the AP view we could see that this was a 4 part intertrochanteric hip fracture also with discontinuity of the lateral distal greater trochanter such that it was a true subtrochanteric fracture as well in addition to having posteromedial subtrochanteric extension by several cm. Reduction proved difficult and required traction and a medial pressure on the mid shaft which tended to distract laterally under traction because the post and an radiology physician assistant pushing on the other hip to decrease the varus moment on the shaft by the post. Left hip prepped draped usual fashion. A 2 in incision was made proximal to greater trochanter. Guide pin was used to insert through the greater trochanter into the shaft. Starter Reamer used and then the long guide kevin inserted down the canal. Canal was reamed to 12 mm at which time there was significant chatter the mid diaphysis. Proximal femur reamed to 16.5. The 10 mm diameter by 33 cm x 125 kevin was chosen inserted with manual pressure. Guide pin inserted in the center of the femoral head slightly posterior to it on the lateral view and slightly inferior on the AP view. This was difficult because of the instability of the fracture and the severe comminution but was accomplished. 90 mm lag screw was inserted to about 7 mm of subchondral bone and locked to the kevin and then and 70 mm anti rotation screw placed. After confirming position of the implants traction was reduced so there was no distraction at the fracture site and rotation of the knee relative to the anteversion of the hip was observed to try and give appropriate rotation to the femur. The interlocking screw was placed in the mid shaft hole. Final x-rays were obtained. Wounds were irrigated with antibiotic solution. Wounds were closed with 0 Vicryl 2-0 subcutaneous Vicryl and glue EBL was 200 cc. There were no complications. Estimated Blood Loss 200 Complications No immediate complications Condition Stable
[2021-11-20] MEDS: fentaNYL CITRATE INJ (*CRX) 100 MCG/2 ML VIAL 25 MCG IV PUSH ×3 (19:22→19:48)
[2021-11-20] MEDS: ONDANSETRON INJ 4 MG/2 ML VIAL IV PUSH ×2 (19:26→20:43)
[2021-11-20] MEDS: SODIUM CHLORIDE 0.9% IV 1,000 ML 125 ML IV CONT (20:42)
[2021-11-20 21:27] LABS: Sodium 125 mmol/L (137-145)
[2021-11-21] VITALS (15 sets, daily range): BP systolic 96–138; BP diastolic 51–73; PULSE 68–101; RESP 16–21; TEMP 36.1–36.8; O2SAT 95–100
[2021-11-21] MEDS: APIXABAN 2.5 MG TABLET PO ×2 (01:24→13:17)
[2021-11-21] MEDS: SODIUM CHLORIDE 0.9% IV 1,000 ML 125 ML IV CONT ×2 (03:35→16:57)
[2021-11-21 05:42] LABS: Alanine Aminotransferase 27 U/L (6-35); Albumin Level 2.2 g/dL (3.5-5.1); Alkaline Phosphatase 112 U/L (38-126); Anion Gap 6 mmol/L (8-16); Aspartate Amino Transferase 50 U/L (14-36); Bilirubin,Total 0.3 mg/dL (0.2-1.3); Blood Urea Nitrogen 14 mg/dL (7-17); Calcium 6.7 mg/dL (8.4-10.2); Carbon Dioxide 20 mmol/L (22-30); Chloride 100 mmol/L (98-107); Estimated CRCL calculation 34 ml/min; Estimated Glomerular Filt Rate 53; Glucose 198 mg/dL (65-110); Potassium 4.1 mmol/L (3.4-5.0); Sodium 126 mmol/L (137-145)
[2021-11-21 06:44] LABS: Hematocrit 23.1 % (37.0-47.0); Mean Corpuscular HGB Conc 33.3 g/dl (32-36); Mean Corpuscular Hemoglobin 35.2 pg (26-34); Mean Corpuscular Volume 105.5 fl (80-100); Mean Platelet Volume 9.4 fl (7.4-10.4); Platelet Count Result 233 k/mm3 (150-375); Red Blood Count 2.19 M/mm3 (4.2-5.4); Red Cell Distribution Width 14.6 % (11.5-14.5); White Blood Count 9.9 K/mm3 (4.5-10.0)
--- NOTE | 2021-11-21 06:47 | WPDANESPN ---
Anes - Prog Note Post-Op Date/Time: 11/21/21 06:47 Cardiovascular status: normal Respiratory status: normal Airway patency: baseline Mental status: baseline Post-Op hydration status: normal Vital Signs: Last Vital Signs Temp 36.2 C L 11/21/21 01:15 Pulse 68 11/21/21 04:00 Resp 20 11/21/21 01:15 BP 138/73 11/21/21 01:15 Pulse Ox 98 11/21/21 01:15 O2 Del Method Room Air 11/20/21 20:00 O2 Flow Rate 10 11/20/21 18:56 Pain Score (VAS): 0 I/O: Intake & Output 11/20/21 11/20/21 11/21/21 15:59 23:59 07:59 Intake Total 8808 158 1351 Output Total 325 Balance 1065 -125 1365 Laboratory Tests 11/21/21 05:13 11/20/21 11/20/21 11/20/21 08:07 08:11 08:11 WBC RBC Hgb Hct MCV MCH MCHC RDW Plt Count MPV PT 12.0 INR 0.9 Sodium Potassium Chloride Carbon Dioxide Anion Gap BUN Creatinine Estim Creat Clear Calc Estimated GFR Glucose Calcium Magnesium 1.8 Total Bilirubin AST ALT Alkaline Phosphatase Total Protein Albumin Vitamin D 25-Hydroxy 14.4 11/20/21 11/20/21 11/20/21 08:11 08:11 21:14 WBC 8.3 RBC 2.92 L Hgb 10.2 L Hct 29.7 L MCV 101.7 H MCH 34.9 H MCHC 34.3 RDW 14.2 Plt Count 281 MPV 9.1 PT INR Sodium 128 L 125 L Potassium 4.0 Chloride 95 L Carbon Dioxide 25 Anion Gap 8 BUN 14 Creatinine 1.00 Estim Creat Clear Calc 34 Estimated GFR 53 L Glucose 147 H Calcium 8.5 Magnesium Total Bilirubin 0.7 AST 77 H ALT 38 H Alkaline Phosphatase 205 H Total Protein 6.0 L Albumin 3.1 L Vitamin D 25-Hydroxy 11/21/21 11/21/21 05:10 05:13 WBC Pending RBC Pending Hgb Pending Hct Pending MCV Pending MCH Pending MCHC Pending RDW Pending Plt Count Pending MPV Pending PT INR Sodium 126 L Potassium 4.1 Chloride 100 Carbon Dioxide 20 L Anion Gap 6 L BUN 14 Creatinine 1.00 Estim Creat Clear Calc 34 Estimated GFR 53 L Glucose 198 H Calcium 6.7 L Magnesium Total Bilirubin 0.3 AST 50 H ALT 27 Alkaline Phosphatase 112 Total Protein 5.0 L Albumin 2.2 L Vitamin D 25-Hydroxy Post-procedural complaints: none Patient Feedback: Patient satisfied with anesthetic care.
[2021-11-21 06:48] LABS: Hemoglobin 7.7 g/dL (12.0-15.0)
--- NOTE | 2021-11-21 06:57 | PM.IMPN ---
Progress Note: A&P Assessment and Plan (1) Closed fracture of left femur: Code(s): S72.92XA - Unspecified fracture of left femur, initial encounter for closed fracture <Denae Hubbard PA-C - Last Filed: 11/21/21 14:30> Status: Acute <Denae GuevaraSACHIN - Last Filed: 11/21/21 14:30> Assessment and Plan: postoperative day 1 after internal fixation of extremely comminuted intertrochanteric subtrochanteric left femur fracture with long intramedullary kevin and sliding hip screw device. Patient is tachycardic and tachypneic on 11/19, full workup revealed bilateral DVTs and multiple nonobstructing DVTs. Pt was taken for IVC filter placement followed immediately by left femur fracture repair. She tolerated both procedures well and was started on Eliquis 2.5mg at 0100 this morning. She is having some postoperative/ blood loss anemia, downtrending from 10-6.6, and we did transfuse 1 unit for her. It is likely she will need additional transfusions. Surgery to manage postoperate anticoagulation and pain control for this patient. Bowel regimen is in place. VSS this AM. <Denae GuevaraSACHIN - Last Filed: 11/21/21 14:30> (2) Pulmonary emboli: Code(s): I26.99 - Other pulmonary embolism without acute cor pulmonale <Denae GuevaraSACHIN - Last Filed: 11/21/21 14:30> Status: Acute <Denae GuevaraSACHIN - Last Filed: 11/21/21 14:30> Assessment and Plan: 11/21- patient now s/p IVC filter placement. patient has been restarted on her Eliquis as of 1:00 a.m. this morning, and continues to be hemodynamically stable.? Will continue to monitor for bleeding. CTA 11/20 showed mild nonocclusive, pulmonary embolism middle and right lower lobes. Cardiomegaly, no pericardial or pleural effusion. - echo showed no evidence of right heart strain, preserved EF, unable to visualize intra-atrial septum due to poor study. - Patient with history of DVTs and pulmonary emboli, was on long-term Eliquis, however patient did discontinue it at some point ( patient is a poor historian) <Denae Caceres, PA-C - Last Filed: 11/21/21 14:30> (3) Acute blood loss anemia: Code(s): D62 - Acute posthemorrhagic anemia <Denae Small Morris, PA-C - Last Filed: 11/21/21 14:30> Status: Acute <Denae R. Morris, PA-C - Last Filed: 11/21/21 14:30> Assessment and Plan: Patient presents with left femoral fracture, history of DVT/PE not on anticoagulation. Incidentally patient was found to have bilateral DVTs and multiple nonbleeding pulmonary emboli. Given urgency of need for repair, anticoagulation continue to be held IVC filter was placed, and femur was repaired. Given the DVTs and PEs, patient was restarted back on her Eliquis after her orthopedic surgery. Surgery does expect some oozing -Hemoglobin dropped from 10.2-7.7 over 24 hours. -H&H q.4 hours -Type and screen has already been accomplished -Transfused 1 unit PRBCs after Hg dropped to 6.6. <Denae Caceres, PA-C - Last Filed: 11/21/21 14:30> (4) DVT (deep venous thrombosis): Code(s): I82.409 - Acute embolism and thrombosis of unspecified deep veins of unspecified lower extremity <Denae Childsix, PA-C - Last Filed: 11/21/21 14:30> Status: Acute <Denae R. Morris, PA-C - Last Filed: 11/21/21 14:30> Assessment and Plan: Venous duplex showed relatively symmetric nonocclusive deep venous necrosis in the bilateral popliteal veins. -have discussed with Orthopedics, further evaluation pursued as above. -plan as above for PE. <Denae RAlondra Morris, PA-C - Last Filed: 11/21/21 14:30> (5) Transaminitis: Code(s): R74.01 - Elevation of levels of liver transaminase levels <Denae R. Morris, PA-C - Last Filed: 11/21/21 14:30> Status: Acute <Denae CaceresSACHIN - Last Filed: 11/21/21 14:30> Assessment and Plan: Transaminitis is nearly resolved hep
--- NOTE | 2021-11-21 07:58 | PM.PNORT ---
Progress Note: A&P Additional Plan Patient is postoperative day 1 after internal fixation of extremely comminuted intertrochanteric subtrochanteric left femur fracture with long intramedullary kevin and sliding hip screw device. She has been afebrile with stable vital signs. Her hemoglobin has drifted down. It is 6.6 today. Patient had anemia on admission hemoglobin 10.7 and has superimposed acute blood loss anemia due to her femur fracture and surgery. Hemoglobin at 5:00 a.m. was 7.7 and at 11:15 a.m. is 6.6. 1 unit of packed red blood cells has been ordered for her. Albumin is 2 There will be continued oozing from all of the comminuted fracture fragments for typically 3 or 4 days after surgery. She may need another unit of packed red blood cells tomorrow. Will check labs again in the morning. She was started on Eliquis at 1:00 a.m. last night. .2. Will order protein supplements. Platelets [id number]. Creatinine and BUN are unchanged at 1.0 and 14 respectively. AST is 50 decreased from admission. Sodium 126. 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 Urine osmolality tests have been ordered. She has been getting normal saline and IV fluids. She has not received the unit yet but it is coming up. She is cheerful and states she feels much better since the surgery. She is alert and oriented. She knew she was here at [facility] and had surgery last night and knew the year was 2021. She was max assist getting her up to the chair with therapy, max assist of 2 people. She tolerated sitting in the chair for half an hour she was not orthostatic and denied lightheadedness and had stable vitals. Her wounds show no drainage on the dressing. She has op-site island dressings. I put a pillow under her knees and calves rather than having her leg flat on the bed. She wiggles her toes up and down comfortably. Impression patient is stable after surgery. No evidence of thromboembolic complication. She has moderate swelling in the hip and thigh area which she had time surgery last night and there is no bleeding from the incisions. Will continue with the Eliquis for DVT prophylaxis as she is at high risk for venous thrombosis complications although her risk for pulmonary emboli should be markedly diminished due to the filter present. I spoke with her at length last night. Due to the fact that she has been rather weak and frail over the last 2 years and has not been able to walk without the walker because of feeling of weakness, I think she will require significant assist with transfers. He is younger at 72 years of age and has been taking care of her for long time and would like to care for her at home as soon as she is safe to be at home and I have invited him to participate in physical therapy here to get a feel for what level of physical assistance she will need. I am expecting that she will need to go to a rehab facility for a period of time as I expect she will continue to need assistance of 2 people for transfers but when she reaches the point where she needs 1 person moderate assist for transfer and her can help with that then having her go home under the care of her would be ideal. Subjective Subjective Date/Time Seen: 11/21/21 07:58 Objective Data Vital Signs Vital Signs: Vital Signs - 24 hr 11/20/21 09:19 11/20/21 08:00 11/20/21 08:00 Temperature Pulse Rate 119 H Respiratory Rate Blood Pressure Pulse Oximetry 99 Oxygen Delivery Room Air Room Air Oxygen Flow Rate 11/20/21 12:00 11/20/21 15:27 11/20/21 15:42 Temperature Pulse Rate 112 H 110 H 105 H Respiratory Rate 14 18 Blood Pressure 146/83 H 145/75 H Pulse Oximetry 99 100 Oxygen Delivery Room Air Room Air Oxygen Flow Rate 11/20/21 15:52 11/20/21 16:00 11/20/21 18:56 Temperature 37.0 C 36.3 C L Pulse Rate 102 H 104 H 117 H Respiratory Rate 16 14 Blood Pressure 1
[2021-11-21 08:01] LABS: Hemoglobin A1C 4.8 % (<5.7)
[2021-11-21 08:12] LABS: Glucose Point of Care 145 mg/dl (65-105)
[2021-11-21] MEDS: polyethylene glycoL 3350 17 GM POWD.PACK PO (09:25)
[2021-11-21] MEDS: SODIUM CHLORIDE 1 GM TABLET PO (09:26)
[2021-11-21] MEDS: FAMOTIDINE 20 MG/2 ML VIAL IV PUSH ×2 (09:26→20:44)
[2021-11-21] MEDS: SENNA/DOCUSATE SODIUM TABLET 2 TAB PO (09:26)
[2021-11-21 11:32] LABS: Glucose Point of Care 172 mg/dl (65-105)
[2021-11-21 11:34] LABS: Sodium Urine Random < 5 meq/L
[2021-11-21 11:37] LABS: Hemoglobin 6.6 g/dL (12.0-15.0)
[2021-11-21 11:38] LABS: Hematocrit 20.1 % (37.0-47.0)
[2021-11-21 11:44] LABS: Magnesium 1.3 mg/dL (1.6-2.3)
[2021-11-21] MEDS: SODIUM CHLORIDE 0.9% IV 250 ML 30 ML IV CONT (12:56)
[2021-11-21 16:39] LABS: Glucose Point of Care 159 mg/dl (65-105)
[2021-11-21 17:32] LABS: Hematocrit 26.7 % (37.0-47.0); Hemoglobin 8.7 g/dL (12.0-15.0)
[2021-11-21] MEDS: ACETAMINOPHEN 325 MG TABLET 650 MG PO (18:44)
[2021-11-21 19:01] LABS: Hematocrit 25.7 % (37.0-47.0); Hemoglobin 8.5 g/dL (12.0-15.0)
[2021-11-21 21:09] LABS: Glucose Point of Care 117 mg/dl (65-105)
[2021-11-21 23:12] LABS: Hematocrit 23.8 % (37.0-47.0)
[2021-11-22] VITALS (13 sets, daily range): BP systolic 107–157; BP diastolic 60–94; PULSE 64–113; RESP 16–21; TEMP 36.3–36.5; O2SAT 98–100
[2021-11-22] MEDS: APIXABAN 2.5 MG TABLET PO ×2 (00:37→13:34)
[2021-11-22] MEDS: SODIUM CHLORIDE 0.9% IV 1,000 ML 125 ML IV CONT (00:42)
[2021-11-22] MEDS: oxyCODONE HCL (*CRX) 2.5 MG TAB IR PO ×2 (04:11→09:25)
[2021-11-22] MEDS: ONDANSETRON INJ 4 MG/2 ML VIAL IV PUSH (04:17)
[2021-11-22 05:28] LABS: Hemoglobin 8.4 g/dL (12.0-15.0); Mean Corpuscular HGB Conc 33.6 g/dl (32-36); Mean Corpuscular Hemoglobin 33.6 pg (26-34); Mean Platelet Volume 9.3 fl (7.4-10.4); Platelet Count Result 206 k/mm3 (150-375); White Blood Count 6.3 K/mm3 (4.5-10.0)
[2021-11-22 05:41] LABS: Alanine Aminotransferase 16 U/L (6-35); Albumin Level 2.2 g/dL (3.5-5.1); Alkaline Phosphatase 121 U/L (38-126); Anion Gap 3 mmol/L (8-16); Aspartate Amino Transferase 46 U/L (14-36); Bilirubin,Total 0.5 mg/dL (0.2-1.3); Blood Urea Nitrogen 11 mg/dL (7-17); Carbon Dioxide 20 mmol/L (22-30); Chloride 106 mmol/L (98-107); Estimated CRCL calculation 31 ml/min; Estimated Glomerular Filt Rate 48; Glucose 101 mg/dL (65-110); Potassium 3.2 mmol/L (3.4-5.0); Sodium 129 mmol/L (137-145)
[2021-11-22] MEDS: ACETAMINOPHEN 325 MG TABLET 650 MG PO ×3 (05:52→17:10)
--- NOTE | 2021-11-22 07:17 | PM.IMPN ---
Progress Note: A&P Assessment and Plan (1) Closed fracture of left femur: Code(s): S72.92XA - Unspecified fracture of left femur, initial encounter for closed fracture Status: Acute Assessment and Plan: Postoperative day 2 after internal fixation of comminuted intertrochanteric subtrochanteric left femur fracture with long intramedullary kevin and sliding hip screw device. Preop workup revealed bilateral DVTs and multiple nonobstructing PEs. Pt was taken for IVC filter placement followed immediately by left femur repair. She tolerated both procedures well and was started on Eliquis 2.5mg . She is having some postoperative/ blood loss anemia, downtrending from 10-6.6, and we did transfuse 1 unit for her. Surgery to manage postoperate anticoagulation and pain control for this patient. Bowel regimen is in place. 11/22 Hgb 8.7, stable since transfusion yesterday. Patient is tachycardic this AM. Tolerating PO intake, IV fluids d/c. (2) Pulmonary emboli: Code(s): I26.99 - Other pulmonary embolism without acute cor pulmonale Status: Acute Assessment and Plan: 11/21- patient now s/p IVC filter placement. patient has been restarted on her Eliquis as of 1:00 a.m. this morning, and continues to be hemodynamically stable.? Will continue to monitor for bleeding. 11/20- CTA?showed mild nonocclusive, pulmonary embolism middle and right lower lobes. Cardiomegaly, no pericardial or pleural effusion. - Echo showed no evidence of right heart strain, preserved EF, unable to visualize intra-atrial septum due to poor study. - Patient with reported history of DVTs and pulmonary emboli, was on long-term Eliquis, however patient did discontinue it at some point. Patient is a poor historian and did deny prior history of DVT/PE, so we are unable to determine if these were provoked or if some underlying etiology from history alone. No known history of malignancy or clotting disorders. - Hematology has been consulted for further recommendations, as patient did have recurrent events after discontinuation of her blood thinner. 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 Incidentally patient was found to have bilateral DVTs and multiple nonobstructing pulmonary emboli. Given urgency of need for repair, anticoagulation was held, IVC filter was placed, and femur was repaired. Given the DVTs and PEs, patient was restarted back on her Eliquis after her surgery by orthopedics. Surgery does expect some oozing from fracture fragments postoperatively. -Hemoglobin dropped from 10.2-7.7 over 24 hours. -H&H q.6 hours -Transfused 1 unit PRBCs after Hg dropped to 6.6. 11/22- Hgb 8.4 this AM, stable since transfusion. Will continue to monitor, transfuse if Hgb <7. (4) DVT (deep venous thrombosis): Code(s): I82.409 - Acute embolism and thrombosis of unspecified deep veins of unspecified lower extremity Status: Acute Assessment and Plan: Venous duplex showed relatively symmetric nonocclusive deep venous necrosis in the bilateral popliteal veins. -plan as above for PE. (5) Transaminitis: Code(s): R74.01 - Elevation of levels of liver transaminase levels Status: Acute Assessment and Plan: Transaminitis is nearly resolved hep panel negative Will check a.m. labs. (6) Hypomagnesemia: Code(s): E83.42 - Hypomagnesemia Status: Acute Assessment and Plan: magnesium 1.3 again today. replaced with 1 g IV mag given slight elevation in Cr. trend labs replace as indicated (7) Hyponatremia: Code(s): E87.1 - Hypo-osmolality and hyponatremia Status: Acute Assessment and Plan: Sodium is 129 today, up from 126 yesterday. 500mL IV normal saline fluid bolu
[2021-11-22 07:51] LABS: Glucose Point of Care 121 mg/dl (65-105)
[2021-11-22] MEDS: POTASSIUM CHLORIDE 20 MEQ TABLET 40 MEQ PO (09:18)
[2021-11-22] MEDS: FAMOTIDINE 20 MG/2 ML VIAL IV PUSH ×2 (09:19→21:49)
[2021-11-22] MEDS: polyethylene glycoL 3350 17 GM POWD.PACK PO (09:19)
[2021-11-22] MEDS: SODIUM CHLORIDE 1 GM TABLET PO ×2 (09:19→17:10)
[2021-11-22] MEDS: SENNA/DOCUSATE SODIUM TABLET 2 TAB PO ×2 (09:19→17:10)
[2021-11-22] MEDS: MAGNESIUM SULF 1 GM/D5W 100 ML 1 GM/100 ML BAG IVPB (09:19)
[2021-11-22 11:51] LABS: Glucose Point of Care 127 mg/dl (65-105)
[2021-11-22 13:31] LABS: Hematocrit 26.7 % (37.0-47.0); Hemoglobin 8.8 g/dL (12.0-15.0)
[2021-11-22] MEDS: CEPHALEXIN 500 MG CAPSULE PO ×2 (13:34→17:10)
[2021-11-22 13:45] LABS: Magnesium 1.7 mg/dL (1.6-2.3)
[2021-11-22] MEDS: SODIUM CHLORIDE 0.9% IV 500 ML IV CONT (15:32)
[2021-11-22] MEDS: METOPROLOL TARTRATE INJ 5 MG/5 ML VIAL IV PUSH (15:32)
--- NOTE | 2021-11-22 16:12 | PM.PNORT ---
Progress Note: A&P Additional Plan Patient is now postop day 2. After internal fixation of comminuted intertroch subtrochanteric left femur fracture. Hemoglobin is 8.8 today which has been stable since transfusion of 1 unit packed red blood cells for a low hemoglobin of 6.6 yesterday. There is no evidence of active blood loss. She does have some serosanguineous drainage from the proximal and of the middle incision which is certainly due to underlying hematoma formation from the fracture we will manage his with light compression and dressing changes and cover her with Keflex. The incision is well approximated. Hopefully the incision will seal in 2 or 3 days. Her vital signs have been stable. Her oxygen saturation on room air is between 98 and 100% so she has no clinical evidence for pulmonary embolism. She is alert and oriented today. She is urinating to go home and would prefer not to go to a rehabilitation facility and her is certainly willing to help out in any way that he can. I have discussed with her that for her to be safe to be at home with her taking care of her by herself, she would need to be able to transfer safely with just his assistance and at this point she is requiring assistance of 2 to transfer. I have talked to her about her osteoporosis and the fact that we do not want her walking on this left leg as excessive weight-bearing on the left leg at it in high numbers will tend to cause excessive collapse and subsidence and could cause cut out as her fracture is very unstable with segmental comminution. We will have her be light partial or touch weight-bearing transfers only until there is early healing which I anticipate will be 6 weeks. Subjective Subjective Date/Time Seen: 11/22/21 16:12 Objective Data Vital Signs Vital Signs: Vital Signs - 24 hr 11/21/21 18:00 11/21/21 20:40 11/21/21 20:00 Temperature 36.7 C Pulse Rate 99 90 Respiratory Rate 16 Blood Pressure 119/65 Pulse Oximetry 100 Oxygen Delivery Room Air 11/21/21 22:42 11/22/21 00:00 11/22/21 02:16 Temperature 36.8 C 36.4 C L Pulse Rate 96 102 H 104 H Respiratory Rate 21 H 20 Blood Pressure 122/59 L 139/72 Pulse Oximetry 100 98 Oxygen Delivery 11/22/21 04:00 11/22/21 06:00 11/22/21 08:00 Temperature 36.5 C Pulse Rate 113 H 110 H 110 H Respiratory Rate 21 H Blood Pressure 157/79 H Pulse Oximetry 100 Oxygen Delivery 11/22/21 09:30 11/22/21 10:00 11/22/21 14:00 Temperature 36.3 C L 36.4 C L Pulse Rate 106 H 101 H Respiratory Rate 20 20 Blood Pressure 142/71 H 137/70 Pulse Oximetry 100 100 Oxygen Delivery Room Air 11/22/21 15:32 11/22/21 15:38 11/22/21 12:00 Temperature Pulse Rate 90 113 H Respiratory Rate Blood Pressure 125/94 H Pulse Oximetry Oxygen Delivery Intake/Output Intake/Output: Intake & Output 11/19/21 11/20/21 11/21/21 11/22/21 23:59 23:59 23:59 23:59 Intake Total 50 1265 3681 1220 Output Total 725 400 525 Balance 50 540 3281 695 Meds/Results Medications: Active Medications Generic Name Dose Route Start Last Admin Trade Name Augusta PRN Reason Stop Dose Admin Acetaminophen 650 mg 11/21/21 13:10 11/22/21 13:34 Acetaminophen 325 Mg Tablet PO 650 mg Q6HR PERCY Administration Apixaban 2.5 mg 11/21/21 13:00 11/22/21 13:34 Apixaban 2.5 Mg Tablet PO 2.5 mg Q12H PERCY Administration Calcium Citrate 1 tablet 11/21/21 09:00 11/22/21 09:19 Calcium Citrate 315 Mg/Vitamin D 250 Units Tab PO 1 tablet BID PERCY Administration Cephalexin HCl 500 mg 11/22/21 13:00 11/22/21 13:34 Cephalexin 500 Mg Capsule PO 500 mg TID PERCY Administration Famotidine 20 mg 11/21/21 09:00 11/22/21 09:19 Famotidine 20 Mg/2 Ml Vial IV PUSH 20 mg Q12HR PERCY Administration Hydroxyzine HCl 50 mg 11/20/21 19:54 Hydroxyzine Hcl 25 Mg Tablet PO Q4H PRN Itching Naloxone HCl 0.1 mg 11/20/21 19:54
[2021-11-22 16:20] LABS: Glucose Point of Care 112 mg/dl (65-105)
[2021-11-22 18:39] LABS: Hematocrit 24.3 % (37.0-47.0); Hemoglobin 8.2 g/dL (12.0-15.0)
[2021-11-23] VITALS (12 sets, daily range): BP systolic 101–122; BP diastolic 62–72; PULSE 64–107; RESP 12–20; TEMP 36–36.9; O2SAT 98–100
[2021-11-23] LABS: Hematocrit 23.2 % (37.0-47.0); Hemoglobin 7.7 g/dL (12.0-15.0)
[2021-11-23] MEDS: APIXABAN 2.5 MG TABLET PO ×2 (00:17→12:14)
[2021-11-23] MEDS: ACETAMINOPHEN 325 MG TABLET 650 MG PO ×4 (00:17→18:28)
[2021-11-23 05:15] LABS: Hematocrit 23.4 % (37.0-47.0); Hemoglobin 7.7 g/dL (12.0-15.0); Mean Corpuscular HGB Conc 32.9 g/dl (32-36); Mean Corpuscular Hemoglobin 33.8 pg (26-34); Mean Corpuscular Volume 102.6 fl (80-100); Mean Platelet Volume 9.2 fl (7.4-10.4); Platelet Count Result 223 k/mm3 (150-375); Red Blood Count 2.28 M/mm3 (4.2-5.4); Red Cell Distribution Width 17.6 % (11.5-14.5); White Blood Count 5.5 K/mm3 (4.5-10.0)
[2021-11-23 05:29] LABS: Alanine Aminotransferase 11 U/L (6-35); Alkaline Phosphatase 126 U/L (38-126); Anion Gap 6 mmol/L (8-16); Aspartate Amino Transferase 44 U/L (14-36); Bilirubin,Total 0.7 mg/dL (0.2-1.3); Blood Urea Nitrogen 10 mg/dL (7-17); Calcium 7.1 mg/dL (8.4-10.2); Carbon Dioxide 20 mmol/L (22-30); Chloride 109 mmol/L (98-107); Estimated CRCL calculation 34 ml/min; Estimated Glomerular Filt Rate 53; Glucose 86 mg/dL (65-110); Potassium 3.7 mmol/L (3.4-5.0); Sodium 135 mmol/L (137-145)
--- NOTE | 2021-11-23 07:15 | PM.IMPN ---
Progress Note: A&P Assessment and Plan (1) Closed fracture of left femur: Code(s): S72.92XA - Unspecified fracture of left femur, initial encounter for closed fracture Status: Acute Assessment and Plan: Postoperative day 3 after internal fixation of comminuted intertrochanteric subtrochanteric left femur fracture with long intramedullary kevin and sliding hip screw device. Preop workup revealed bilateral DVTs and multiple nonobstructing PEs. Pt was taken for IVC filter placement followed immediately by left femur repair. She tolerated both procedures well and was started on Eliquis 2.5mg . She is having some postoperative/ blood loss anemia, downtrending from 10-6.6, and we did transfuse 1 unit for her. Surgery to manage postoperate anticoagulation and pain control for this patient. Bowel regimen is in place. 11/22 Hgb 8.7, stable since transfusion yesterday. Patient is tachycardic this AM. Tolerating PO intake, IV fluids d/c. 11/23 Hgb 7.7 this AM-> 7.2 this afternoon. Orthopedics elected to transfuse 1 more unit given patient's fatigue. . Ortho wishes to keep patient weight bearing at light partial or touch weight-bearing transfers only for next 6 weeks due to unstable comminuted fracture and osteoporosis. They do recommend rehab vs home discharge because patient still requires 2 person transfers at this time. Will repeat Venous duplex tomorrow to re-evaluate DVTs. (2) Pulmonary emboli: Code(s): I26.99 - Other pulmonary embolism without acute cor pulmonale Status: Acute Assessment and Plan: 11/20- CTA?showed mild nonocclusive, pulmonary embolism middle and right lower lobes. Cardiomegaly, no pericardial or pleural effusion. - Echo showed no evidence of right heart strain, preserved EF, unable to visualize intra-atrial septum due to poor study. - Patient with reported history of DVTs and pulmonary emboli, was on long-term Eliquis, however patient did discontinue it at some point. Patient is a poor historian and did deny prior history of DVT/PE, so we are unable to determine if these were provoked or if some underlying etiology from history alone. No known history of malignancy or clotting disorders. - Hematology has been consulted for further recommendations, as patient did have recurrent events after discontinuation of her blood thinner. 11/21- patient now s/p IVC filter placement. patient has been restarted on her Eliquis. continues to be hemodynamically stable.? Will continue to monitor. 11/22- Patient has been tachycardic, however, she did respond to IV lopressor, and this AM tachycardia has resolved. Will continue to monitor. Awaiting hematology consultation. 11/23- Continuing to monitor no changes to above plan. Patient is stable, as are VS. Patient continues Eliquis. 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 Incidentally patient was found to have bilateral DVTs and multiple nonobstructing pulmonary emboli. Given urgency of need for repair, anticoagulation was held, IVC filter was placed, and femur was repaired. Given the DVTs and PEs, patient was restarted back on her Eliquis after her surgery by orthopedics. Surgery does expect some oozing from fracture fragments postoperatively. -Hemoglobin dropped from 10.2-7.7 over 24 hours. -H&H q.6 hours -Transfused 1 unit PRBCs after Hg dropped to 6.6. 11/22- Hgb 8.4 this AM, stable since transfusion. Will continue to monitor, transfuse if Hgb <7. 7- Hgb 7.7 this AM -> 7.2. Orthopedics transfused 1 unit PRBCs. (4) DVT (deep venous thrombosis): Code(s): I82.409 - Acute embolism and thrombosis of unspecified deep veins of unspecified lower extremity Status: Acute Assessment and Plan: Venous duplex showed relatively symmetric nonocclusive deep
[2021-11-23 07:45] LABS: Hematocrit 22.5 % (37.0-47.0); Hemoglobin 7.2 g/dL (12.0-15.0)
[2021-11-23 09:08] LABS: Glucose Point of Care 94 mg/dl (65-105)
[2021-11-23] MEDS: CEPHALEXIN 500 MG CAPSULE PO ×3 (09:43→18:28)
[2021-11-23] MEDS: SODIUM CHLORIDE 1 GM TABLET PO ×2 (09:43→18:28)
[2021-11-23] MEDS: FAMOTIDINE 20 MG/2 ML VIAL IV PUSH ×2 (09:43→21:39)
[2021-11-23] MEDS: oxyCODONE HCL (*CRX) 2.5 MG TAB IR PO (09:50)
[2021-11-23 11:53] LABS: Glucose Point of Care 93 mg/dl (65-105)
[2021-11-23 12:46] LABS: Magnesium 1.7 mg/dL (1.6-2.3)
--- NOTE | 2021-11-23 13:57 | PM.PNORT ---
Progress Note: A&P Additional Plan Patient is postoperative day 3. After internal fixation of comminuted left intertrochanteric subtrochanteric femur fracture. She has no complaints. She has only trace amount of serosanguineous drainage on the dressing from the middle incision. She has the Jt wrap spica in place. She has increased swelling in the knee calf foot which tends to occur with the Jt spica. I am reluctant to place thigh-high Hi hose because of her nonocclusive DVT in the popliteal vein. She is on Eliquis 2.5 mg every 12 hours. I will plan to leave the spica dressing on for 8 more hours as the dressing was just changed then discontinue it. Tomorrow I am going to order new venous duplex ultrasounds of the lower extremities. The next issue to address will be whether to place her on pharmacologic dosing of the Eliquis or continue the prophylactic dosing. Again we have no way of knowing whether her nonocclusive bilateral popliteal vein thromboses are acute or chronic the same holds true with the mild nonocclusive pulmonary emboli seen on CT angiogram. I would like to avoid placing her on the pharmacologic dosing at least until her hemoglobin as fully stabilized as her pattern of fracture is associated with excessive bleeding and her hemoglobin continues to drift down even on the prophylactic dosing. She has no symptoms of pulmonary emboli. Her oxygen saturation periodically is 100% on room air. And she has a vena cava filter in place which should prevent pulmonary emboli but does not prevent of course progressive lower extremity venous thrombosis. Her hemoglobin has drifted down to 7.2. She does feel very tired and I think that is at least in part due to her very low hemoglobin I think transfusing 1 more unit of blood, a 2nd unit of blood would be appropriate her 1st unit was day before yesterday. Her heart rate is trending lower and most the time is below 100 now so I think she is probably more euvolemic. Her sodium is up to 135 which is improved. He her creatinine is back down to 1.0. It was 1.1 yesterday and the same as on admission so I think she is likely euvolemic. Plan: venous duplex ultrasounds of both lower extremities tomorrow, discontinue hip spica after tonight, elevate the left leg on 2 pillows, transfuse 1 unit of packed red blood cells today. Subjective Subjective Date/Time Seen: 11/23/21 13:57 Objective Data Vital Signs Vital Signs: Vital Signs - 24 hr 11/22/21 14:00 11/22/21 15:32 11/22/21 15:38 Temperature 36.4 C L Pulse Rate 101 H 90 Respiratory Rate 20 Blood Pressure 137/70 125/94 H Pulse Oximetry 100 Oxygen Delivery 11/22/21 16:00 11/22/21 20:01 11/22/21 20:42 Temperature 36.3 C L Pulse Rate 64 74 Respiratory Rate 16 Blood Pressure 107/60 Pulse Oximetry 99 Oxygen Delivery Room Air 11/22/21 20:00 11/23/21 00:00 11/23/21 01:55 Temperature 36.6 C Pulse Rate 77 68 89 Respiratory Rate 12 Blood Pressure 101/67 Pulse Oximetry 100 Oxygen Delivery 11/23/21 03:49 11/23/21 04:00 11/23/21 09:25 Temperature 36.6 C 36.6 C Pulse Rate 89 92 83 Respiratory Rate 16 18 Blood Pressure 116/65 121/62 Pulse Oximetry 100 98 Oxygen Delivery 11/23/21 08:00 11/23/21 09:50 11/23/21 12:00 Temperature Pulse Rate 64 107 H Respiratory Rate Blood Pressure Pulse Oximetry Oxygen Delivery Room Air Intake/Output Intake/Output: Intake & Output 11/20/21 11/21/21 11/22/21 11/23/21 23:59 23:59 23:59 23:59 Intake Total 1265 3681 1760 440 Output Total 725 400 925 400 Balance 540 3281 835 40 Meds/Results Medications: Active Medications Generic Name Dose Route Start Last Admin Trade Name Freq PRN Reason Stop Dose Admin Acetaminophen 650 mg 11/21/21 13:10 11/23/21 12:14 Acetaminophen 325 Mg Tablet PO 650 mg Q6HR PERCY Administration Apixaban 2.5 mg 11/21/21 13:00 11/23/21 12:14 Apixaban 2.5 Mg Tablet PO 2.5
[2021-11-23 14:30] LABS: Hematocrit 24.8 % (37.0-47.0); Hemoglobin 8.2 g/dL (12.0-15.0)
[2021-11-24] VITALS (13 sets, daily range): BP systolic 114–137; BP diastolic 58–69; PULSE 67–105; RESP 14–16; TEMP 36.6–36.8; O2SAT 99–100
[2021-11-24] MEDS: APIXABAN 2.5 MG TABLET PO ×2 (00:19→12:36)
[2021-11-24 06:06] LABS: Hemoglobin 7.5 g/dL (12.0-15.0); Mean Corpuscular HGB Conc 32.6 g/dl (32-36); Mean Corpuscular Hemoglobin 33.8 pg (26-34); Mean Corpuscular Volume 103.6 fl (80-100); Mean Platelet Volume 8.9 fl (7.4-10.4); Platelet Count Result 245 k/mm3 (150-375); Red Blood Count 2.22 M/mm3 (4.2-5.4); Red Cell Distribution Width 17.7 % (11.5-14.5); White Blood Count 5.7 K/mm3 (4.5-10.0)
[2021-11-24 06:18] LABS: Alanine Aminotransferase 10 U/L (6-35); Alkaline Phosphatase 149 U/L (38-126); Anion Gap 8 mmol/L (8-16); Aspartate Amino Transferase 50 U/L (14-36); Bilirubin,Total 0.5 mg/dL (0.2-1.3); Blood Urea Nitrogen 11 mg/dL (7-17); Calcium 7.7 mg/dL (8.4-10.2); Carbon Dioxide 19 mmol/L (22-30); Chloride 109 mmol/L (98-107); Estimated CRCL calculation 34 ml/min; Estimated Glomerular Filt Rate 53; Glucose 80 mg/dL (65-110); Magnesium 1.6 mg/dL (1.6-2.3); Potassium 3.4 mmol/L (3.4-5.0); Sodium 136 mmol/L (137-145)
--- NOTE | 2021-11-24 07:15 | PM.PNORT ---
Progress Note: A&P Additional Plan Patient is postop day number 4 after internal fixation 4 part comminuted right intertrochanteric subtrochanteric femur fracture. She feels she is doing well she denies lightheadedness dizziness or excessive fatigue today. Her hemoglobin jumped up to 8.2 when it was checked yesterday afternoon. This morning it was 7.5 again. Her vital signs remained stable. It is hovering at this range. I see that another hemoglobin was checked 1/2 hours ago and was 7.8. I would like to hold off on checking further hemoglobins until tomorrow morning and we will see where it is. If it is lower we will transfuse if it is higher we will observe. She should not be experiencing any significant additional bleeding from her fracture surfaces at this point and her hemoglobin has been stated. She had trace serous drainage on the incision this morning the central incision which otherwise looks fine. We have ordered venous duplex ultrasounds of both lower extremities to compare to those from 11/20. Unless she has formed extensive thromboses then I would prefer to continue with prophylactic dosing of the Eliquis to minimize risk of excessive bleeding. She knows the year but I think she is a little perhaps just a little bit confused as she keeps asking about getting dressed this morning and walking. I have reminded her that we need to have her keep her weight off and avoid repeated weight-bearing steps on this left leg until her early healing has occurred at 6 weeks because of her osteoporosis and extensive segmental comminution she has which makes it a more unstable fracture prone to collapse and cut out. Subjective Subjective Date/Time Seen: 11/24/21 07:15 Objective Data Vital Signs Vital Signs: Vital Signs - 24 hr 11/23/21 09:25 11/23/21 08:00 11/23/21 09:50 Temperature 36.6 C Pulse Rate 83 64 Respiratory Rate 18 Blood Pressure 121/62 Pulse Oximetry 98 Oxygen Delivery Room Air 11/23/21 12:00 11/23/21 14:57 11/23/21 16:00 Temperature 36.9 C Pulse Rate 107 H 86 86 Respiratory Rate 20 Blood Pressure 118/72 Pulse Oximetry 99 Oxygen Delivery 11/23/21 18:47 11/23/21 20:36 11/24/21 01:17 Temperature 36.0 C L 36.5 C 36.8 C Pulse Rate 97 104 H 87 Respiratory Rate 16 16 16 Blood Pressure 118/64 122/63 114/64 Pulse Oximetry 98 99 100 Oxygen Delivery 11/23/21 20:00 11/24/21 00:00 11/24/21 04:00 Temperature Pulse Rate 77 76 73 Respiratory Rate Blood Pressure Pulse Oximetry Oxygen Delivery 11/24/21 05:52 Temperature 36.8 C Pulse Rate 88 Respiratory Rate 14 Blood Pressure 119/62 Pulse Oximetry 100 Oxygen Delivery Intake/Output Intake/Output: Intake & Output 11/21/21 11/22/21 11/23/21 11/24/21 23:59 23:59 23:59 23:59 Intake Total 3681 1760 780 200 Output Total 400 925 600 200 Balance 3281 835 180 0 Meds/Results Medications: Active Medications Generic Name Dose Route Start Last Admin Trade Name Freq PRN Reason Stop Dose Admin Acetaminophen 650 mg 11/21/21 13:10 11/24/21 06:19 Acetaminophen 325 Mg Tablet PO Not Given Q6HR PERCY Apixaban 2.5 mg 11/21/21 13:00 11/24/21 00:19 Apixaban 2.5 Mg Tablet PO 2.5 mg Q12H PERCY Administration Calcium Citrate 1 tablet 11/21/21 09:00 11/23/21 18:28 Calcium Citrate 315 Mg/Vitamin D 250 Units Tab PO 1 tablet BID PERCY Administration Cephalexin HCl 500 mg 11/22/21 13:00 11/23/21 18:28 Cephalexin 500 Mg Capsule PO 500 mg TID PERCY Administration Famotidine 20 mg 11/21/21 09:00 11/23/21 21:39 Famotidine 20 Mg/2 Ml Vial IV PUSH 20 mg Q12HR PERCY Administration Hydroxyzine HCl 50 mg 11/20/21 19:54 Hydroxyzine Hcl 25 Mg Tablet PO Q4H PRN Itching Naloxone HCl 0.1 mg 11/20/21 19:54 Naloxone Hcl 0.4 Mg/Ml Vial IV PUSH Q2M PRN Opiate Reversal Ondansetron HCl 4 mg 11/20/21 19:54 11/22/21 04:17 Ondansetron Inj 4 Mg/2 Ml Via
--- NOTE | 2021-11-24 07:30 | PM.IMPN ---
Progress Note: A&P Assessment and Plan (1) Closed fracture of left femur: Code(s): S72.92XA - Unspecified fracture of left femur, initial encounter for closed fracture <Denae Caceres PA-C - Last Filed: 11/24/21 11:26> Status: Acute <Denae Caceres PA-C - Last Filed: 11/24/21 11:26> Assessment and Plan: Postoperative day 3 after internal fixation of comminuted intertrochanteric subtrochanteric left femur fracture with long intramedullary kevin and sliding hip screw device. Preop workup revealed bilateral DVTs and multiple nonobstructing PEs. Pt was taken for IVC filter placement followed immediately by left femur repair. She tolerated both procedures well and was started on Eliquis 2.5mg . She is having some postoperative/ blood loss anemia, downtrending from 10-6.6, and we did transfuse 1 unit for her. Surgery to manage postoperate anticoagulation and pain control for this patient. Bowel regimen is in place. 11/22 Hgb 8.7, stable since transfusion yesterday. Patient is tachycardic this AM. Tolerating PO intake, IV fluids d/c. 11/23 Hgb 7.7 this AM-> 7.2 this afternoon. Orthopedics elected to transfuse 1 more unit given patient's fatigue. . Ortho wishes to keep patient weight bearing at light partial or touch weight-bearing transfers only for next 6 weeks due to unstable comminuted fracture and osteoporosis. They do recommend rehab vs home discharge because patient still requires 2 person transfers at this time. Will repeat Venous duplex tomorrow to re-evaluate DVTs. 11/24 Hgb fell again this AM to 7.5 after transfusion yesterday. Repeat H&H @ 11. Transfuse if continuing to fall. Hematology Dr. Miller has been consulted telephonically. At this time, he recommends continuation of the current plan and to continue Eliquis at the current dosage. Venous duplex today showed persistent bilateral DVTs in the popliteal veins. <Denae Caceres PA-C - Last Filed: 11/24/21 11:26> (2) Pulmonary emboli: Code(s): I26.99 - Other pulmonary embolism without acute cor pulmonale <Denae Caceres PA-C - Last Filed: 11/24/21 11:26> Status: Acute <Denae Caceres PA-C - Last Filed: 11/24/21 11:26> Assessment and Plan: 11/20- CTA?showed mild nonocclusive, pulmonary embolism middle and right lower lobes. Cardiomegaly, no pericardial or pleural effusion. - Echo showed no evidence of right heart strain, preserved EF, unable to visualize intra-atrial septum due to poor study. - Patient with reported history of DVTs and pulmonary emboli, was on long-term Eliquis, however patient did discontinue it at some point. Patient is a poor historian and did deny prior history of DVT/PE, so we are unable to determine if these were provoked or if some underlying etiology from history alone. No known history of malignancy or clotting disorders. - Hematology has been consulted for further recommendations, as patient did have recurrent events after discontinuation of her blood thinner. 11/21- patient now s/p IVC filter placement. patient has been restarted on her Eliquis. continues to be hemodynamically stable.? Will continue to monitor. 11/22- Patient has been tachycardic, however, she did respond to IV lopressor, and this AM tachycardia has resolved. Will continue to monitor. Awaiting hematology consultation. 11/23- Continuing to monitor no changes to above plan. Patient is stable, as are VS. Patient continues Eliquis. 11/24- VSS, continue to monitor with plan as above. Continue Eliquis. <Denae Caceres PA-C - Last Filed: 11/24/21 11:26> (3) Acute blood loss anemia: Code(s): D62 - Acute posthemorrhagic anemia <Denae Caceres PA-C - Last Filed: 11/24/21 11:26> Status: Acute <Denae Caceres PA-C - Last Filed: 11/24/21 11:26> Assessment and Plan: Patient presents with left femoral fracture, history of DVT/PE not on anticoagulation. Incidentally patient wa
--- NOTE | 2021-11-24 07:57 | PCOTNOTE ---
Patient out of room when attempted to see for OT this AM. Will continue plan of care.
[2021-11-24] MEDS: CEPHALEXIN 500 MG CAPSULE PO ×3 (08:30→16:38)
[2021-11-24] MEDS: SODIUM CHLORIDE 1 GM TABLET PO ×2 (08:31→16:38)
[2021-11-24] MEDS: FAMOTIDINE 20 MG/2 ML VIAL IV PUSH ×2 (08:31→20:11)
[2021-11-24] MEDS: oxyCODONE HCL (*CRX) 2.5 MG TAB IR PO (10:19)
[2021-11-24] MEDS: METOPROLOL TARTRATE INJ 5 MG/5 ML VIAL IV PUSH (10:28)
--- NOTE | 2021-11-24 11:24 | PCPTNOTE ---
Patient refused treatment this session. Patient reported I'm too tired and reported no to therapy and getting up to chair.
[2021-11-24 11:36] LABS: Hematocrit 24.8 % (37.0-47.0); Hemoglobin 7.8 g/dL (12.0-15.0)
[2021-11-24] MEDS: ACETAMINOPHEN 325 MG TABLET 650 MG PO ×2 (12:36→17:13)
[2021-11-25] VITALS (13 sets, daily range): BP systolic 120–137; BP diastolic 61–78; PULSE 65–101; RESP 12–18; TEMP 36.4–36.9; O2SAT 95–100
[2021-11-25] MEDS: ACETAMINOPHEN 325 MG TABLET 650 MG PO ×4 (00:26→17:29)
[2021-11-25] MEDS: APIXABAN 2.5 MG TABLET PO ×2 (00:26→13:14)
[2021-11-25 05:29] LABS: Hematocrit 24.4 % (37.0-47.0); Hemoglobin 7.7 g/dL (12.0-15.0); Mean Corpuscular HGB Conc 31.6 g/dl (32-36); Mean Corpuscular Hemoglobin 33.3 pg (26-34); Mean Corpuscular Volume 105.6 fl (80-100); Mean Platelet Volume 8.8 fl (7.4-10.4); Platelet Count Result 265 k/mm3 (150-375); Red Blood Count 2.31 M/mm3 (4.2-5.4); White Blood Count 6.1 K/mm3 (4.5-10.0)
[2021-11-25 05:40] LABS: Alanine Aminotransferase 13 U/L (6-35); Albumin Level 2.1 g/dL (3.5-5.1); Alkaline Phosphatase 161 U/L (38-126); Anion Gap 6 mmol/L (8-16); Aspartate Amino Transferase 58 U/L (14-36); Bilirubin,Total 0.6 mg/dL (0.2-1.3); Blood Urea Nitrogen 12 mg/dL (7-17); Carbon Dioxide 21 mmol/L (22-30); Chloride 109 mmol/L (98-107); Estimated CRCL calculation 34 ml/min; Estimated Glomerular Filt Rate 53; Glucose 75 mg/dL (65-110); Potassium 3.7 mmol/L (3.4-5.0); Sodium 136 mmol/L (137-145)
--- NOTE | 2021-11-25 06:27 | PM.PNORT ---
Progress Note: A&P Additional Plan Patient is postoperative day 5. After internal fixation comminuted left intertrochanteric subtrochanteric femur fracture. Hemoglobin stable, up a f little bit higher today at 7.7. Vital signs are quite stable. Her heart rate has been in the 60s to 80s. Oxygen saturation 100% on room air. duplex ultrasound yesterday demonstrate no change nonocclusive popliteal vein thromboses. Again, these may be chronic from her previous DVTs and we have no way of knowing the age. They have not changed all postoperatively. She was on Eliquis 2.5 mg twice daily for DVT prophylaxis. is there is mild serous drainage from the center incision. This will be observed. She states she feels well. She asked when she can start weight-bearing on the leg again I reminded her that her fracture was severely comminuted and that with her osteoporosis if she starts bearing weight too much on that leg she could have the fracture collapse and have hardware cut out. Recheck CBC in a.m.. H Subjective Subjective Date/Time Seen: 11/25/21 06:27 Objective Data Vital Signs Vital Signs: Vital Signs - 24 hr 11/24/21 10:28 11/24/21 10:30 11/24/21 12:00 Temperature 36.6 C Pulse Rate 105 H 67 85 Respiratory Rate 16 Blood Pressure 137/69 Pulse Oximetry 100 Oxygen Delivery 11/24/21 08:00 11/24/21 14:00 11/24/21 17:57 Temperature 36.7 C 36.7 C Pulse Rate 103 H 91 85 Respiratory Rate 16 16 Blood Pressure 120/69 132/67 Pulse Oximetry 99 99 Oxygen Delivery 11/24/21 16:00 11/24/21 19:42 11/24/21 20:00 Temperature 36.8 C Pulse Rate 73 71 Respiratory Rate 16 Blood Pressure 126/58 L Pulse Oximetry 99 Oxygen Delivery Room Air 11/24/21 20:00 11/25/21 00:00 11/25/21 01:12 Temperature 36.6 C Pulse Rate 85 71 78 Respiratory Rate 12 Blood Pressure 126/61 Pulse Oximetry 99 Oxygen Delivery 11/25/21 04:00 11/25/21 05:12 Temperature 36.4 C Pulse Rate 65 80 Respiratory Rate 16 Blood Pressure 120/61 Pulse Oximetry 100 Oxygen Delivery Intake/Output Intake/Output: Intake & Output 11/22/21 11/23/21 11/24/21 11/25/21 23:59 23:59 23:59 23:59 Intake Total 1760 780 680 50 Output Total 925 600 600 100 Balance 835 180 80 -50 Meds/Results Medications: Active Medications Generic Name Dose Route Start Last Admin Trade Name Freq PRN Reason Stop Dose Admin Acetaminophen 650 mg 11/21/21 13:10 11/25/21 05:18 Acetaminophen 325 Mg Tablet PO 650 mg Q6HR PERCY Administration Apixaban 2.5 mg 11/21/21 13:00 11/25/21 00:26 Apixaban 2.5 Mg Tablet PO 2.5 mg Q12H PERCY Administration Calcium Citrate 1 tablet 11/21/21 09:00 11/24/21 16:38 Calcium Citrate 315 Mg/Vitamin D 250 Units Tab PO 1 tablet BID PERCY Administration Cephalexin HCl 500 mg 11/22/21 13:00 11/24/21 16:38 Cephalexin 500 Mg Capsule PO 500 mg TID PERCY Administration Famotidine 20 mg 11/21/21 09:00 11/24/21 20:11 Famotidine 20 Mg/2 Ml Vial IV PUSH 20 mg Q12HR PERCY Administration Hydroxyzine HCl 50 mg 11/20/21 19:54 Hydroxyzine Hcl 25 Mg Tablet PO Q4H PRN Itching Naloxone HCl 0.1 mg 11/20/21 19:54 Naloxone Hcl 0.4 Mg/Ml Vial IV PUSH Q2M PRN Opiate Reversal Ondansetron HCl 4 mg 11/20/21 19:54 11/22/21 04:17 Ondansetron Inj 4 Mg/2 Ml Vial IV PUSH 4 mg Q4H PRN Administration Nausea And Vomiting Oxycodone HCl 2.5 mg 11/20/21 19:54 11/24/21 10:19 Oxycodone Hcl (*Crx) 2.5 Mg Tab Ir PO 2.5 mg Q4H PRN Administration Pain Rated 4-6 Polyethylene Glycol 17 gm 11/21/21 09:00 11/24/21 08:31 Polyethylene Glycol 3350 17 Gm Powd.Pack PO Not Given QAM PERCY Senna/Docusate Sodium 2 tab 11/21/21 09:00 11/24/21 16:37 Senna/Docusate Sodium Tablet PO Not Given BID PERCY Sodium Chloride 1 gm 11/22/21 09:00 11/24/21 16:38 Sodium Chloride 1 Gm Tablet PO 1 gm BID PERCY
--- NOTE | 2021-11-25 07:00 | PM.IMPN ---
Progress Note: A&P Assessment and Plan (1) Closed fracture of left femur: Code(s): S72.92XA - Unspecified fracture of left femur, initial encounter for closed fracture <Denae Caceres PA-C - Last Filed: 11/25/21 15:27> Status: Acute <Denae Caceres PA-C - Last Filed: 11/25/21 15:27> Assessment and Plan: Postoperative day 5 after internal fixation of comminuted intertrochanteric subtrochanteric left femur fracture with long intramedullary kevin and sliding hip screw device. Preop workup revealed bilateral DVTs and multiple nonobstructing PEs. Pt was taken for IVC filter placement followed immediately by left femur repair. She tolerated both procedures well and was started on Eliquis 2.5mg. She is having some postoperative/ blood loss anemia, downtrending from 10-6.6, and we did transfuse 1 unit for her. Surgery to manage postoperate anticoagulation and pain control for this patient. Bowel regimen is in place. 11/22 Hgb 8.7, stable since transfusion yesterday. Patient is tachycardic this AM. Tolerating PO intake, IV fluids d/c. 11/23 Hgb 7.7 this AM-> 7.2 this afternoon. Orthopedics elected to transfuse 1 more unit given patient's fatigue. . Ortho wishes to keep patient weight bearing at light partial or touch weight-bearing transfers only for next 6 weeks due to unstable comminuted fracture and osteoporosis. They do recommend rehab vs home discharge because patient still requires 2 person transfers at this time. Will repeat Venous duplex tomorrow to re-evaluate DVTs. 11/24 Hgb fell again this AM to 7.5 after transfusion yesterday. Repeat H&H @ 11. Transfuse if continuing to fall. Hematology Dr. Miller has been consulted telephonically. At this time, he recommends continuation of the current plan and to continue Eliquis at the current dosage. Venous duplex today showed persistent bilateral DVTs in the popliteal veins. 11/25 Hgb stable at 7.7 today. Orthopedics recommends trend CBC for [address] VSS stable. Dr. Miller will be rounding on this patient today for further recommendations, which we do appreciated. Pt continues PT/OT here. Patient has been accepted at [facility] for SNF placement. Patient advised on importance of continuing her blood thinners and follow up with a forensic anthropologist after discharge. <Denae Caceres PA-C - Last Filed: 11/25/21 15:27> (2) Pulmonary emboli: Code(s): I26.99 - Other pulmonary embolism without acute cor pulmonale <Denae Caceres PA-C - Last Filed: 11/25/21 15:27> Status: Acute <Denae Caceres PA-C - Last Filed: 11/25/21 15:27> Assessment and Plan: 11/20- CTA?showed mild nonocclusive, pulmonary embolism middle and right lower lobes. Cardiomegaly, no pericardial or pleural effusion. - Echo showed no evidence of right heart strain, preserved EF, unable to visualize intra-atrial septum due to poor study. - Patient with reported history of DVTs and pulmonary emboli, was on long-term Eliquis, however patient did discontinue it at some point. Patient is a poor historian and did deny prior history of DVT/PE, so we are unable to determine if these were provoked or if some underlying etiology from history alone. No known history of malignancy or clotting disorders. - Hematology has been consulted for further recommendations, as patient did have recurrent events after discontinuation of her blood thinner. 11/21- patient now s/p IVC filter placement. patient has been restarted on her Eliquis. continues to be hemodynamically stable.? Will continue to monitor. 11/22- Patient has been tachycardic, however, she did respond to IV lopressor, and this AM tachycardia has resolved. Will continue to monitor. Awaiting hematology consultation. 11/23- Continuing to monitor no changes to above plan. Patient is stable, as are VS. Patient continues Eliquis. 11/24- VSS, continue to monitor with plan as above. Continue Eliquis. 11/25- Contin
[2021-11-25] MEDS: FAMOTIDINE 20 MG/2 ML VIAL IV PUSH ×2 (08:32→20:27)
[2021-11-25] MEDS: CEPHALEXIN 500 MG CAPSULE PO ×3 (08:32→17:29)
[2021-11-25] MEDS: SODIUM CHLORIDE 1 GM TABLET PO ×2 (08:32→17:29)
[2021-11-25] MEDS: SODIUM CHLORIDE 0.9% IV 1,000 ML 55 ML IV CONT (08:33)
--- NOTE | 2021-11-25 18:32 | PDONCCN ---
[facility] - Date of Consult Date/Time: 11/25/21 18:32 Requesting Physician: Denae Caceres PA-C Primary Care Provider: [employer]PERATOR PHYSICIAN - Consult Narrative Reason for consult: Leukocytosis Narrative: Stephanie Beltrán is a 81 year old female with history of pulmonary embolism, DVT presented to the ER status post fall. CT abdomen and pelvis did not show any pelvic fracture. She was on Eliquis that was subsequently discontinued. Patient had placement of IVC filter on November 19, 2021. Patient also has ORIF left proximal femur fracture done on November 19, 2021. Venous Doppler from November 24 showed persistent bilateral DVT in the popliteal vein. Labs showed hemoglobin of 7.7 with MCV of 105.6. Kidney function was 53%. She denies any bleeding. Denies any recent weight loss. No other new complaints. Review of Systems - Review of Systems All systems reviewed & are unremarkable except as noted in HPI and [facility] Medical History: Medical History (Last Reviewed 11/20/21 @ 16:08 by Kenan Cruz MD) DVT (deep venous thrombosis) Hypertension Pulmonary embolism Surgical History: Surgical History (Last Reviewed 11/20/21 @ 16:09 by Kenan Cruz MD) H/O: hysterectomy Family History: Family History (Last Reviewed 11/20/21 @ 16:09 by Kenan Cruz MD) Other Unknown family medical history - Social History Social History: Social History (Last Reviewed 11/20/21 @ 16:09 by Kenan Cruz MD) Gender Identity: Gender identity (if verbalized by the patient): Female Sexual Orientation: Sexual Orientation (if Verbalized by the Patient): Straight or Heterosexual Alcohol Use: Alcohol intake: current Drinks per week: 6 Alcohol use details: patient stated she has wine a couple of times a week Substance Use: Substance use: never Substance use type: does not use Others: Spiritual care concerns: No Agree to blood products: Yes Living Arrangements: Living arrangements: with family Oppucation/Education: Occupation/Education: retired Smoking Status: Smoking status: Former smoker Comments: Additional smoking assessment comments: Patient has no idea when she started or stopped smoking Meds Home Medications Medication Instructions Recorded Confirmed Type acetaminophen 325 mg capsule 325 mg Q4-6H PRN Pain 11/19/21 11/19/21 History (Tylenol) Allergies Allergy/AdvReac Type Severity Reaction Status Date / Time Penicillins Allergy Mild Unknown Verified 11/19/21 18:58 Results - Labs CBC & Chem 7: 11/25/21 05:18 11/25/21 05:18 Labs: Short CBC 11/25/21 Range/Units 05:18 WBC 6.1 (4.5-10.0) K/mm3 Hgb 7.7 L (12.0-15.0) g/dL Hct 24.4 L (37.0-47.0) % Plt Count 265 (150-375) k/mm3 BMP 11/25/21 05:18 Sodium 136 L Potassium 3.7 Chloride 109 H Carbon Dioxide 21 L BUN 12 Creatinine 1.00 Glucose 75 Calcium 8.0 L Liver Function 11/25/21 Range/Units 05:18 Total Bilirubin 0.6 (0.2-1.3) mg/dL AST 58 H (14-36) U/L ALT 13 (6-35) U/L Alkaline Phosphatase 161 H (38-126) U/L Albumin 2.1 L (3.5-5.1) g/dL Assessment and Plan - Additional Plan Macrocytic anemia. Patient is 81-year-old female with history of bilateral PE and DVT status post recent fall. She had an IVC filter placement and had ORIF of the left femur done on November 19, 2021. She denies any bleeding. Labs reviewed that showed macrocytic anemia. We will order the workup for microcytic anemia including vitamin B12 level, methylmalonic acid level, TSH and iron panel. It is possible that she may have underlying bone marrow disorder like MDS. Will discuss bone marrow biopsy after the initial lab results becomes available. Hypercoagulable state with bilateral PE and DVT. Patient is not status post IVC filter placement. CT chest from November 19 showed mild nonocclusive PE an
[2021-11-25 20:52] LABS: Iron 20 ug/dL (37-170)
[2021-11-25 21:02] LABS: Percent Iron Saturation 15 % (20-50)
[2021-11-25 21:40] LABS: Folic Acid 3.2 ng/mL (2.76->20)
[2021-11-26] VITALS (7 sets, daily range): BP systolic 125–146; BP diastolic 61–67; PULSE 70–97; RESP 18–20; TEMP 36.4–36.8; O2SAT 97–100
[2021-11-26] MEDS: APIXABAN 2.5 MG TABLET PO ×2 (00:11→12:52)
[2021-11-26] MEDS: ACETAMINOPHEN 325 MG TABLET 650 MG PO ×3 (00:11→12:51)
[2021-11-26] MEDS: SODIUM CHLORIDE 0.9% IV 1,000 ML 55 ML IV CONT (03:00)
[2021-11-26 07:46] LABS: Basophils Percent Auto 0.5 % (0.2-1.2); Eosinophils Absolute Auto 0.3 K/mm3 (0-0.3); Eosinophils Percent Auto 4.4 % (0-4.4); Hematocrit 24.1 % (37.0-47.0); Hemoglobin 7.9 g/dL (12.0-15.0); Immature Granulocyte Absolute 0.08 K/mm3 (0.00-0.031); Immature Granulocyte Percent A 1.4 % (0-0.5); Lymphocytes Absolute Auto 1.09 K/mm3 (0.9-3.2); Lymphocytes Percent Auto 18.5 % (18.3-44.2); Mean Corpuscular HGB Conc 32.8 g/dl (32-36); Mean Corpuscular Hemoglobin 33.8 pg (26-34); Mean Platelet Volume 8.8 fl (7.4-10.4); Monocytes Absolute Auto 0.6 K/mm3 (0.1-0.6); Monocytes Percent Auto 9.3 % (2.6-8.5); Neutrophils Absolute Auto 3.9 K/mm3 (1.3-6.7); Neutrophils Percent Auto 65.9 % (45.5-73.1); Nucleated Red Blood Cells Absolute Auto 0.1 K/mm3 (0.0-0.012); Nucleated Red Blood Cells Perc 0.8 % (0.0-0.2); Platelet Count Result 266 k/mm3 (150-375); Red Blood Count 2.34 M/mm3 (4.2-5.4); Red Cell Distribution Width 18.2 % (11.5-14.5); White Blood Count 5.9 K/mm3 (4.5-10.0)
[2021-11-26 07:57] LABS: Anion Gap 4 mmol/L (8-16); Blood Urea Nitrogen 13 mg/dL (7-17); Calcium 8.1 mg/dL (8.4-10.2); Carbon Dioxide 20 mmol/L (22-30); Chloride 113 mmol/L (98-107); Estimated CRCL calculation 38 ml/min; Estimated Glomerular Filt Rate 60; Glucose 85 mg/dL (65-110); Potassium 3.5 mmol/L (3.4-5.0); Sodium 137 mmol/L (137-145)
[2021-11-26] MEDS: SENNA/DOCUSATE SODIUM TABLET 2 TAB PO (09:39)
[2021-11-26] MEDS: CEPHALEXIN 500 MG CAPSULE PO ×2 (09:39→12:52)
[2021-11-26] MEDS: FAMOTIDINE 20 MG/2 ML VIAL IV PUSH (09:39)
[2021-11-26] MEDS: SODIUM CHLORIDE 1 GM TABLET PO (09:39)
--- NOTE | 2021-11-26 10:41 | PM.OP ---
Procedure Note - Brief Procedure Note - Brief Date of procedure: 11/26/21 <BRIGHT Stock - Last Filed: 11/26/21 10:43> 11/26/21 <Bharath Callejas MD - Last Filed: 11/26/21 12:10> Pre-op diagnosis: left hip fx <BRIGHT Stock - Last Filed: 11/26/21 10:43> Left comminuted 4 part intertroch/subtroch femur fracture <BRIGHT Stock - Last Filed: 11/26/21 10:43> Procedure performed: ORIF left 4 part proximal humerus fracture. <BRIGHT Stock - Last Filed: 11/26/21 10:43> Description of procedure: Patient underwent open reduction internal fixation of left proximal femur fracture. I was involved throughout the time surgery including positioning the patient on the surgical table. First assisted throughout the time surgery as well as helped get the patient to recovery. 2 hours were spent in total time for the care of this patient <BRIGHT Stock - Last Filed: 11/26/21 10:43> Surgeon: BRIGHT Stock <BRIGHT Stock - Last Filed: 11/26/21 10:43>
[2021-11-26 11:34] LABS: Free T4 Free Thyroxine Reflex 1.25 ng/dL (0.78-2.19)
--- NOTE | 2021-11-26 12:07 | PM.DS ---
DS: Admitting Diagnosis Discharge Date 11/26/21 Admitting Diagnosis hip fracture DS: Discharge Diagnosis Discharge Diagnosis (1) Closed fracture of left femur: Code(s): S72.92XA - Unspecified fracture of left femur, initial encounter for closed fracture Status: Acute Assessment and Plan: -POD 6 s/p internal fixation of comminuted intertrochanteric subtrochanteric left femur fracture with long intramedullary kevin and sliding hip screw device. -Preop workup revealed bilateral DVTs and multiple nonobstructing PEs.? -Pt was taken for IVC filter placement followed immediately by left femur? repair. She tolerated both procedures well and was started on Eliquis 2.5mg. -Ortho wishes to keep patient weight bearing at light partial or touch weight-bearing transfers only for next 6 weeks due to unstable comminuted fracture and osteoporosis. Pt being discharged to rehab per ortho's wishes. -She was having some postoperative/ blood loss anemia, downtrending from 10-6.6, and we did transfuse 1 unit for her. Hgb has remained stable x [address] Miller was consulted and recommends continuing current plan with Eliquis. He provided his office information for follow up. Venous duplex showed persistent bilateral DVTs in the popliteal veins. -She is stable for discharge at this time. Will follow up with hematology and ortho. (2) Pulmonary emboli: Code(s): I26.99 - Other pulmonary embolism without acute cor pulmonale Status: Acute Assessment and Plan: 11/20- CTA?showed mild nonocclusive, pulmonary embolism middle and right lower lobes. Cardiomegaly, no pericardial or pleural effusion. - Echo showed no evidence of right heart strain, preserved EF, unable to visualize intra-atrial septum due to poor study. - Patient with reported history of DVTs and pulmonary emboli, was on long-term Eliquis, however patient did discontinue it at some point. Patient is a poor historian and did deny prior history of DVT/PE, so we are unable to determine if these were provoked or if some underlying etiology from history alone. No known history of malignancy or clotting disorders. - Hematology has been consulted for further recommendations, as patient did have recurrent events after discontinuation of her blood thinner. 11/21- patient now s/p IVC filter placement. patient has been restarted on her Eliquis. continues to be hemodynamically stable.? Will continue to monitor. 11/22- Patient has been tachycardic, however, she did respond to IV lopressor, and this AM tachycardia has resolved. Will continue to monitor. Awaiting hematology consultation. 11/23- Continuing to monitor no changes to above plan. Patient is stable, as are VS. Patient continues Eliquis. 11/24- VSS, continue to monitor with plan as above. Continue Eliquis. 11/25- Continue to monitor as above. 11/26- Continues to be stable. Discharge to SNF today. 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 Incidentally patient was found to have bilateral DVTs and multiple nonobstructing pulmonary emboli. Given urgency of need for repair, anticoagulation was held, IVC filter was placed, and femur was repaired. Given the DVTs and PEs, patient was restarted back on her Eliquis after her surgery by orthopedics. Surgery does expect some oozing from fracture fragments postoperatively. Transfused 1 unit PRBCs after Hg dropped to 6.6. 11/22- Hgb 8.4 this AM, stable since transfusion. Will continue to monitor, transfuse if Hgb <7. 11/23- Hgb 7.7 this AM -> 7.2. Orthopedics transfused 1 unit PRBCs. 11/24- Plan as above. Continue to monitor H&H Q6Hrs and Transfuse if <7. 11/24- Plan as above will repeat AM CBC tomorrow. 11/25- Plan as above. 11/26- Hgb stable x 2 days, 7.9 today. Stable for discharge. Repeat CBC 3 d
[2021-11-26 12:14] LABS: Osmolality, Urine 396 mOsm/kg (50-1200)
--- NOTE | 2021-11-26 12:47 | PCNWS ---
Weekly nutritional screen. Patient is tolerating current diet -Regular with adequate intake. No weight loss reported. Plans for SNF today. No nutritional needs at this time.
[2021-11-26 12:59] LABS: Total Triiodothyronine (T3) 0.71 NG/ML (0.97-1.69)
[2021-11-26 13:11] LABS: EDCOVIDSCREEN Negative (Negative)
[2021-11-30 01:52] LABS: Methylmalonic Acid 352 nmol/L (87-318)
== END 2021-11-26 15:27 | DRG 480 ==
LOC: ANHED 18:34 → ANH2MED 20:08
PROVIDERS: Internal Medicine Hematology & Oncology; Orthopaedic Surgery; Physician Assistant; Student in an Organized Health Care Education/Training Program; Surgery; Admitting Provider Family Medicine; Emergency Provider Emergency Medicine; Visit Provider Internal Medicine
PROC: 06H03DZ Insertion of Intraluminal Device into Inferior Vena Cava, Percutaneous Approach (ICD-10-PCS; principal; 2021-11-20 14:15)
PROC: 0QS734Z Reposition Left Upper Femur with Internal Fixation Device, Percutaneous Approach (ICD-10-PCS; CPT 27245; principal; 2021-11-20 15:30)
DX: S72.142A Displaced intertrochanteric fracture of left femur, initial encounter for closed fracture (principal); I26.99 Other pulmonary embolism without acute cor pulmonale; I82.433 Acute embolism and thrombosis of popliteal vein, bilateral; E87.1 Hypo-osmolality and hyponatremia; D62 Acute posthemorrhagic anemia; R73.9 Hyperglycemia, unspecified; R00.0 Tachycardia, unspecified; D53.9 Nutritional anemia, unspecified; M81.0 Age-related osteoporosis without current pathological fracture; R74.01 Elevation of levels of liver transaminase levels; E83.42 Hypomagnesemia; I10 Essential (primary) hypertension; Z66 Do not resuscitate; Z20.822 Contact with and (suspected) exposure to COVID-19; W01.0XXA Fall on same level from slipping, tripping and stumbling without subsequent striking against object, initial encounter; Z86.711 Personal history of pulmonary embolism; Z86.718 Personal history of other venous thrombosis and embolism; Z87.891 Personal history of nicotine dependence; Z88.0 Allergy status to penicillin
CPT/HCPCS: 36415; 36430; 37191; 71045; 71275; 72170; 72192; 73552; 73700; 80048; 80053; 82306; 82607; 82728; 82746; 82948; 83036; 83540; 83550; 83735; 83921; 83935; 84100; 84295; 84300; 84439; 84443; 84480; 84484; 85014; 85018; 85025; 85027; 85610; 86850; 86900; 86901; 86920; 87426; 93005; 93306; 93970; 96374; 97110; 97116; 97161; 97165; 97530; 97535; 99199; 99285; A9270; C1713; C1880; C9803; J0131; J0330; J0690; J1100; J1644; J2270; J2405; J2704; J2710; J3010; J3370; J3475; J7030; J7040; J7050; J7120; P9016; Q9967; U0003; U0005